=== PATIENT | female | born 1960 | race Caucasian/White ===

== ENCOUNTER → 2016-12-13 | Outpatient (REF) | payer OTHER | LOC: M LABDRWAD 12:48 | PROVIDERS: ATTEND Nurse Practitioner Family | DX: R73.01 Impaired fasting glucose (principal) ==

== ENCOUNTER → 2017-04-07 | Outpatient (REF) | payer OTHER ==
[2017-04-07 12:48] LABS: BASO % 0.5 % (0.0-1.0); EOS # 0.3 K/mm3 (0.0-0.50); EOS % 4.2 % (0.0-3.0); LARGE UNSTAINED CELL # 0.1 K/mm3 (0.0-0.4); LARGE UNSTAINED CELL % 1.5 % (0.0-4.0); LYMPH # 2.5 K/mm3 (1.5-4.5); LYMPH % 33.8 % (24.0-44.0); MEAN CORPUSCULAR HEMOGLOBIN 30.3 pg (27.0-33.0); MEAN CORPUSCULAR HGB CONC 33.1 g/dl (32.0-36.5); MEAN CORPUSCULAR VOLUME 91.5 fl (80.0-96.0); MONO # 0.4 K/mm3 (0.0-0.8); MONO % 5.4 % (0.0-5.0); NEUTROPHILS # 3.8 K/mm3 (1.8-7.7); NEUTROPHILS % 54.5 % (36.0-66.0); PLATELET COUNT, AUTOMATED 301 k/mm3 (150-450); RED CELL DISTRIBUTION WIDTH 12.6 % (11.5-14.5)
[2017-04-07 13:13] LABS: ALBUMIN 3.8 GM/DL (3.2-5.2); ALBUMIN/GLOBULIN RATIO 1.19 (1.00-1.93); ALKALINE PHOSPHATASE 98 U/L (45-117); ALT/SGPT 30 U/L (12-78); ANION GAP 6 MEQ/L (8-16); AST/SGOT 17 U/L (15-37); BLOOD UREA NITROGEN 23 MG/DL (7-18); CALCIUM LEVEL 9.8 MG/DL (8.5-10.1); CARBON DIOXIDE LEVEL 32 MEQ/L (21-32); CHLORIDE LEVEL 104 MEQ/L (98-107); CHOLESTEROL LEVEL 179 MG/DL (<200); CREATININE FOR GFR 0.93 MG/DL (0.55-1.02); GLOMERULAR FILTRATION RATE > 60.0 (>51); GLUCOSE, FASTING 102 MG/DL (70-105); POTASSIUM SERUM 4.2 MEQ/L (3.5-5.1); SODIUM LEVEL 142 MEQ/L (136-145); TRIGLYCERIDES LEVEL 129 MG/DL (<150)
== END ==
LOC: M LABDRWAD 12:12
PROVIDERS: ATTEND Nurse Practitioner Family
DX: I10 Essential (primary) hypertension (principal); E78.4 Other hyperlipidemia; R73.01 Impaired fasting glucose; K21.9 Gastro-esophageal reflux disease without esophagitis

== ENCOUNTER → 2017-10-17 | Outpatient (REF) | payer OTHER ==
[2017-10-17 12:41] LABS: BASO % 0.4 % (0.0-1.0); EOS # 0.3 10^3/uL (0.0-0.50); EOS % 3.8 % (0.0-3.0); IMMATURE GRANULOCYTE % 0.1 % (0-0); LYMPH # 2.1 10^3/uL (1.5-4.5); LYMPH % 29.2 % (24.0-44.0); MEAN CORPUSCULAR HEMOGLOBIN 29.4 pg (27.0-33.0); MEAN CORPUSCULAR VOLUME 89.2 fl (80.0-96.0); MONO # 0.7 10^3/uL (0.0-0.8); MONO % 9.4 % (0.0-5.0); NEUTROPHILS % 57.1 % (36.0-66.0); PLATELET COUNT, AUTOMATED 313 10^3/uL (150-450); RED CELL DISTRIBUTION WIDTH 12.6 % (11.5-14.5)
[2017-10-17 12:57] LABS: ALBUMIN 3.7 GM/DL (3.2-5.2); ALBUMIN/GLOBULIN RATIO 1.12 (1.00-1.93); ALKALINE PHOSPHATASE 89 U/L (45-117); ALT/SGPT 29 U/L (12-78); ANION GAP 8 MEQ/L (8-16); AST/SGOT 17 U/L (7-37); BILIRUBIN,TOTAL 1.4 MG/DL (0.2-1.0); BLOOD UREA NITROGEN 15 MG/DL (7-18); CALCIUM LEVEL 8.8 MG/DL (8.5-10.1); CARBON DIOXIDE LEVEL 28 MEQ/L (21-32); CHLORIDE LEVEL 108 MEQ/L (98-107); CHOLESTEROL LEVEL 172 MG/DL (<200); CREATININE FOR GFR 0.82 MG/DL (0.55-1.02); GLOMERULAR FILTRATION RATE > 60.0 (>51); GLUCOSE, FASTING 114 MG/DL (70-105); POTASSIUM SERUM 3.7 MEQ/L (3.5-5.1); SODIUM LEVEL 144 MEQ/L (136-145); TRIGLYCERIDES LEVEL 114 MG/DL (<150)
== END ==
LOC: M LAB REF 08:50
PROVIDERS: ATTEND Nurse Practitioner Family
DX: E55.9 Vitamin D deficiency, unspecified (principal); K21.9 Gastro-esophageal reflux disease without esophagitis; R73.01 Impaired fasting glucose; E78.4 Other hyperlipidemia; I10 Essential (primary) hypertension

== ENCOUNTER 2018-04-09 06:31 | Day surgery (SDC) | payer BC, OTHER ==
[2018-04-09] MEDS: NS 1,000 ML IV (07:03)
[2018-04-09] MEDS ORDERED: PROPOFOL 500 MG/50 ML VIAL As Ordered (07:39)
[2018-04-09] MEDS ORDERED: fentaNYL 100 MCG/2 ML INJECTION (J3010) As Ordered (07:39)
[2018-04-09] MEDS ORDERED: LIDOCAINE 2% INJ 100 MG/5 ML SDV (FOR ANES.) As Ordered (07:39)
== END 2018-04-09 08:26 | disposition home or self-care (01) ==
LOC: M OPP 06:31
DX: Z12.11 Encounter for screening for malignant neoplasm of colon (principal); K64.0 First degree hemorrhoids; K57.30 Diverticulosis of large intestine without perforation or abscess without bleeding; I10 Essential (primary) hypertension; E78.00 Pure hypercholesterolemia, unspecified; K21.9 Gastro-esophageal reflux disease without esophagitis; K44.9 Diaphragmatic hernia without obstruction or gangrene; R12 Heartburn; Z79.899 Other long term (current) drug therapy; Z87.891 Personal history of nicotine dependence; Z87.42 Personal history of other diseases of the female genital tract; Z87.19 Personal history of other diseases of the digestive system
CPT/HCPCS: 45378

== ENCOUNTER → 2018-04-25 | Outpatient (CLI) | payer BC, OTHER ==
[~2018-04-25] MED LIST: E-Z-GAS II EFFERVESCENT PACKET (SODIUM BICARB./CITRIC ACID/SIMETHICONE) As Ordered; E-Z-HD 98% w/w 340GM SUSP BTL As Ordered; E-Z-PAQUE 96% w/w SUSP 176GM BTL As Ordered
== END ==
LOC: M RAD 07:57
DX: R12 Heartburn (principal)
CPT/HCPCS: 74241

== ENCOUNTER → 2018-08-02 | Outpatient (REF) | payer OTHER ==
[2018-08-02 12:42] LABS: BASO # 0.1 10^3/uL (0.0-0.2); BASO % 0.6 % (0.0-1.0); EOS # 0.3 10^3/uL (0.0-0.50); EOS % 3.3 % (0.0-3.0); HEMATOCRIT 44.7 % (36.0-47.0); HEMOGLOBIN 14.6 g/dl (12.0-15.5); IMMATURE GRANULOCYTE % 0.3 % (0-3.0); LYMPH # 2.6 10^3/uL (1.5-4.5); LYMPH % 29.6 % (24.0-44.0); MEAN CORPUSCULAR HEMOGLOBIN 29.5 pg (27.0-33.0); MEAN CORPUSCULAR HGB CONC 32.7 g/dl (32.0-36.5); MEAN CORPUSCULAR VOLUME 90.3 fl (80.0-96.0); MONO # 0.7 10^3/uL (0.0-0.8); MONO % 7.9 % (0.0-5.0); NEUTROPHILS # 5.1 10^3/uL (1.8-7.7); NEUTROPHILS % 58.3 % (36.0-66.0); PLATELET COUNT, AUTOMATED 323 10^3/uL (150-450); RED BLOOD COUNT 4.95 10^6/uL (4.00-5.40); RED CELL DISTRIBUTION WIDTH 12.7 % (11.5-14.5); WHITE BLOOD COUNT 8.8 10^3/uL (4.0-10.0)
[2018-08-02 13:11] LABS: TOTAL 25(OH) VITAMIN D 49.8 NG/ML (30.0-100.0)
[2018-08-02 13:21] LABS: ESTIMATED AVERAGE GLUCOSE 151 MG/DL (60-110); HEMOGLOBIN A1c 6.9 %
[2018-08-02 14:15] LABS: ALBUMIN 3.8 GM/DL (3.2-5.2); ALBUMIN/GLOBULIN RATIO 1.19 (1.00-1.93); ALKALINE PHOSPHATASE 100 U/L (45-117); ALT/SGPT 34 U/L (12-78); ANION GAP 11 MEQ/L (8-16); AST/SGOT 19 U/L (7-37); BILIRUBIN,TOTAL 1.1 MG/DL (0.2-1.0); BLOOD UREA NITROGEN 21 MG/DL (7-18); CALCIUM LEVEL 9.2 MG/DL (8.5-10.1); CARBON DIOXIDE LEVEL 29 MEQ/L (21-32); CHLORIDE LEVEL 103 MEQ/L (98-107); CHOLESTEROL LEVEL 185 MG/DL (<200); CHOLESTEROL RISK RATIO 3.425 (<5); CREATININE FOR GFR 0.91 MG/DL (0.55-1.30); GLOMERULAR FILTRATION RATE > 60.0 (>51); GLUCOSE, FASTING 130 MG/DL (70-100); HDL CHOLESTEROL 54 MG/DL (>40); LDL CHOLESTEROL 103 MG/DL (<100); NON-HDL-C 131 MG/DL; SODIUM LEVEL 143 MEQ/L (136-145); TRIGLYCERIDES LEVEL 138 MG/DL (<150)
== END ==
LOC: M LABDRWAD 12:07
DX: I10 Essential (primary) hypertension (principal); E55.9 Vitamin D deficiency, unspecified

== ENCOUNTER → 2019-02-04 | Outpatient (REF) | payer OTHER ==
[~2019-02-04] MED LIST changes: +ATOR1TAB21 PO; -E-Z-GAS II EFFERVESCENT PACKET (SODIUM BICARB./CITRIC ACID/SIMETHICONE) As Ordered; -E-Z-HD 98% w/w 340GM SUSP BTL As Ordered; -E-Z-PAQUE 96% w/w SUSP 176GM BTL As Ordered; +LOSARTAN/HCT PO; +OMEP20CA3 PO
[2019-02-04 13:18] LABS: BASO % 0.5 % (0.0-1.0); EOS # 0.3 10^3/uL (0.0-0.50); HEMATOCRIT 45.5 % (36.0-47.0); HEMOGLOBIN 14.7 g/dl (12.0-15.5); LYMPH # 2.3 10^3/uL (1.5-4.5); MEAN CORPUSCULAR HGB CONC 32.3 g/dl (32.0-36.5); MEAN CORPUSCULAR VOLUME 89.7 fl (80.0-96.0); MONO # 0.6 10^3/uL (0.0-0.8); MONO % 7.7 % (0.0-5.0); NEUTROPHILS % 60.6 % (36.0-66.0); PLATELET COUNT, AUTOMATED 292 10^3/uL (150-450); RED BLOOD COUNT 5.07 10^6/uL (4.00-5.40); WHITE BLOOD COUNT 8.3 10^3/uL (4.0-10.0)
[2019-02-04 13:36] LABS: ALT/SGPT 41 U/L (12-78); BILIRUBIN,TOTAL 1.3 MG/DL (0.2-1.0); BLOOD UREA NITROGEN 22 MG/DL (7-18); CALCIUM LEVEL 9.4 MG/DL (8.5-10.1); CARBON DIOXIDE LEVEL 30 MEQ/L (21-32); CHLORIDE LEVEL 104 MEQ/L (98-107); CHOLESTEROL LEVEL 187 MG/DL (<200); CHOLESTEROL RISK RATIO 3.169 (<5); GLOMERULAR FILTRATION RATE > 60.0 (>51); GLUCOSE, FASTING 137 MG/DL (70-100); HDL CHOLESTEROL 59 MG/DL (>40); LDL CHOLESTEROL 101 MG/DL (<100); NON-HDL-C 128 MG/DL; POTASSIUM SERUM 3.6 MEQ/L (3.5-5.1); SODIUM LEVEL 140 MEQ/L (136-145); TOTAL 25(OH) VITAMIN D 53.6 NG/ML (30.0-100.0); TOTAL PROTEIN 6.9 GM/DL (6.4-8.2); TRIGLYCERIDES LEVEL 133 MG/DL (<150)
== END ==
LOC: M LABDRWAD 12:06
PROVIDERS: ATTEND Nurse Practitioner Family
DX: E11.9 Type 2 diabetes mellitus without complications (principal); I10 Essential (primary) hypertension; E55.9 Vitamin D deficiency, unspecified

== ENCOUNTER → 2020-06-26 | Outpatient (REF) | payer OTHER ==
[~2020-06-26] MED LIST changes: +OMEP1CAP73 PO; -OMEP20CA3 PO
[2020-06-26 14:50] LABS: BASO # 0.1 10^3/uL (0.0-0.2); BASO % 0.8 % (0.0-1.0); EOS # 0.3 10^3/uL (0.0-0.5); EOS % 3.5 % (0.0-3.0); HEMOGLOBIN 15.3 g/dl (12.0-15.5); LYMPH # 2.5 10^3/uL (1.5-5.0); LYMPH % 32.1 % (24.0-44.0); MEAN CORPUSCULAR HEMOGLOBIN 29.9 pg (27.0-33.0); MEAN CORPUSCULAR HGB CONC 33.3 g/dl (32.0-36.5); MONO # 0.7 10^3/uL (0.0-0.8); MONO % 8.9 % (0.0-5.0); NEUTROPHILS # 4.2 10^3/uL (1.5-8.5); NEUTROPHILS % 54.4 % (36.0-66.0); PLATELET COUNT, AUTOMATED 273 10^3/uL (150-450); RED BLOOD COUNT 5.11 10^6/uL (4.00-5.40); WHITE BLOOD COUNT 7.6 10^3/uL (4.0-10.0)
[2020-06-26 15:14] LABS: ALBUMIN 3.8 GM/DL (3.2-5.2); ALT/SGPT 66 U/L (12-78); BILIRUBIN,TOTAL 1.3 MG/DL (0.2-1.0); BLOOD UREA NITROGEN 11 MG/DL (7-18); CALCIUM LEVEL 9.2 MG/DL (8.5-10.1); CARBON DIOXIDE LEVEL 31 MEQ/L (21-32); CHLORIDE LEVEL 98 MEQ/L (98-107); CREATININE FOR GFR 0.94 MG/DL (0.55-1.30); GLOMERULAR FILTRATION RATE > 60.0 (>51); GLUCOSE, FASTING 270 MG/DL (70-100); POTASSIUM SERUM 3.2 MEQ/L (3.5-5.1); SODIUM LEVEL 137 MEQ/L (136-145)
== END ==
LOC: M LABDRWAD 12:52
PROVIDERS: ATTEND Family Medicine
DX: Z01.818 Encounter for other preprocedural examination (principal)

== ENCOUNTER 2020-11-11 17:01 | Inpatient (IN) | payer BC, OTHER ==
[~2020-11-11] VITALS: Ht 157.5 cm; Wt 86.3 kg
[2020-11-11] MEDS: AZITHROMYCIN INJ 500 MG, VIAL MATE ADAPTER 1 EACH in D5W 250 ML IV SCH (01:15)
--- OUTSIDE RECORDS SUMMARY | 2020-11-11 17:07 | CCD | Continuity of Care Document ---
Author Author Rashmi OVALLE Organization Unknown Address [address] [place] [id number] Phone [phone] Care Team Providers Care Criminal Legal Assistant Name Role Phone Shemar [employer] AUTM [phone] Problems Active Problems Provider Date Type 2 diabetes mellitus [place]: 03/2021 Social History Type Date Description Comments Sex Unknown Tobacco Use Start: Unknown Never Smoked Cigarettes ETOH Use Occasionally consumes alcohol Tobacco Use Start: Unknown The patient has never vaped Smoking Status Reviewed: 11/04/20 The patient has never vaped Allergies, Adverse Reactions, Alerts Description No Known Drug Allergies Medications Active Medications SIG Qnty Indications Ordering Provide r Date Omeprazole bid Unknown Lisinopril Unknown Atorvastatin Calcium Unknown Vitamin D Unknown Metformin HCL Powder Unknown Tylenol 325mg Capsules x2 at 12:30p Unknown Immunizations Description No Information Available Vital Signs Date Vital Result Comment 11/04/2020 2:29pm BP Systolic 117 mmHg BP Diastolic 88 mmHg Heart Rate 94 /min Regular Respiratory Rate 20 /min O2 % BldC Oximetry 96 % Body Temperature 97.5 F Weight 200.00 lb Height 62 inches 5'2" BMI (Body Mass Index) 36.6 kg/m2 Pain Level 0 12/17/2017 11:50am BP Systolic 140 mmHg BP Diastolic 87 mmHg Heart Rate 75 /min Respiratory Rate 18 /min O2 % BldC Oximetry 98 % Body Temperature 98.2 F Weight 210.00 lb Height 62 inches 5'2" BMI (Body Mass Index) 38.4 kg/m2 Pain Level 2 Results Description No Information Available Procedures Description No Information Available Medical Devices Description No Information Available Encounters Type Date Location Provider Dx Diagnosis Office Visit 11/04/2020 2:00p [facility] Preet Ovalle, P .AElisha R05 Cough R42 Dizziness and giddiness U07.1 Covid-19 Assessments Date Code Description Provider 11/04/2020 R05 Cough Preet andrews P.A. 11/04/2020 R42 Dizziness and giddiness Preet Ovalle P.AElisha 11/04/2020 U07.1 Covid-19 Preet andrews, P.A. Plan of Treatment No Information Available Functional Status Description No Information Available Mental Status Description No Information Available Referrals Description No Information Available
--- OUTSIDE RECORDS SUMMARY | 2020-11-11 17:07 | CCD ---
Author Author [facility] Organization [facility] Address Unknown Phone Unavailable Care Team Providers Care Pharmacist Technician Name Role Phone DRAZEK, I RAMIRO PA Unavailable Unavailable DRAZEK, I RAMIRO PA Unavailable Unavailable DRAZEK, I RAMIRO PA Unavailable Unavailable DRAZEK, I RAMIRO PA Unavailable Unavailable DRAZEK, I RAMIRO PA Unavailable Unavailable DRAZEK, I RAMIRO PA Unavailable Unavailable DRAZEK, I RAMIRO PA Unavailable Unavailable DRAZEK, I RAMIRO PA Unavailable Unavailable DRAZEK, I RAMIRO PA Unavailable Unavailable DRAZEK, I RAMIRO PA Unavailable Unavailable DRAZEK, I RAMIRO PA Unavailable Unavailable DRAZEK, I RAMIRO PA Unavailable Unavailable DRAZEK, I RAMIRO PA Unavailable Unavailable DRAZEK, I RAMIRO PA Unavailable Unavailable DRAZEK, I RAMIRO PA Unavailable Unavailable DRAZEK, I RAMIRO PA Unavailable Unavailable DRAZEK, I RAMIRO PA Unavailable Unavailable DRAZEK, I RAMIRO PA Unavailable Unavailable DRAZEK, I RAMIRO PA Unavailable Unavailable DRAZEK, I RAMIRO PA Unavailable Unavailable DRAZEK, I RAMIRO PA Unavailable Unavailable DRAZEK, I RAMIRO PA Unavailable Unavailable DRAZEK, I RAMIRO PA Unavailable Unavailable DRAZEK, I RAMIRO PA Unavailable Unavailable DRAZEK, I RAMIRO PA Unavailable Unavailable DRAZEK, I RAMIRO PA Unavailable Unavailable DRAZEK, I RAMIRO PA Unavailable Unavailable DRAZEK, I RAMIRO PA Unavailable Unavailable DRAZEK, I RAMIRO PA Unavailable Unavailable DRAZCLEMENTINA, I RAMIRO PA Unavailable Unavailable KALLIE, Saeed COOK MD Unavailable Unavailable KALLIE, Saeed COOK MD Unavailable Unavailable KALLIE, Saeed COOK MD Unavailable Unavailable KALLIE, Saeed COOK MD Unavailable Unavailable KALLIE, Saeed COOK MD Unavailable Unavailable KALLIE, Saeed COOK MD Unavailable Unavailable KALLIE, Saeed COOK MD Unavailable Unavailable KALLIE, Saeed COOK MD Unavailable Unavailable KALLIE, Saeed COOK MD Unavailable Unavailable KALLIE, Saeed COOK MD Unavailable Unavailable Breana MCFARLAND Unavailable Unavailable IVANA, Louis MARTINEZ MD Unavailable Unavailable IVANA, Louis MARTINEZ MD Unavailable Unavailable IVANA, Louis MARTINEZ MD Unavailable Unavailable IVANA, Louis MARTINEZ MD Unavailable Unavailable IVANA, Louis MARTINEZ MD Unavailable Unavailable IVANA, Louis MARTINEZ MD Unavailable Unavailable IVANA, Louis MARTINEZ MD Unavailable Unavailable IVANA, Louis MARTINEZ MD Unavailable Unavailable IVANA, Louis MARTINEZ MD Unavailable Unavailable IVANA, Louis MARTINEZ MD Unavailable Unavailable IVANA, Louis MARTINEZ MD Unavailable Unavailable IVANA, Louis MARTINEZ MD Unavailable Unavailable IVANA, Louis MARTINEZ MD Unavailable Unavailable IVANA, Louis MARTINEZ MD Unavailable Unavailable IVANA, Louis MARTINEZ MD Unavailable Unavailable IVANA, Louis MARTINEZ MD Unavailable Unavailable IVANA, Louis MARTINEZ MD Unavailable Unavailable IVANA, Louis MARTINEZ MD Unavailable Unavailable IVANA, Louis MARTINEZ MD Unavailable Unavailable IVANA, Louis MARTINEZ MD Unavailable Unavailable IVANA, Louis MARTINEZ MD Unavailable Unavailable IVANA, Louis MARTINEZ MD Unavailable Unavailable IVANA, Louis MARTINEZ MD Unavailable Unavailable IVANA, Louis MARTINEZ MD Unavailable Unavailable IVANA, Louis MARTINEZ MD Unavailable Unavailable IVANA, Louis MARTINEZ MD Unavailable Unavailable IVANA, Louis MARTINEZ MD Unavailable Unavailable IVANA, Louis MARTINEZ MD Unavailable Unavailable IVANA, Louis MARTINEZ MD Unavailable Unavailable IVANA, Louis MARTINEZ MD Unavailable Unavailable IVANA, Louis MARTINEZ MD Unavailable Unavailable IVANA, B JUAN SIMPSON Unavailable Unavailable IVANA, Louis MARTINEZ MD Unavailable Unavailable IVNAA, Louis MARTINEZ MD Unavailable Unavailable IVANA, Louis MARTINEZ MD Unavailable Unavailable IVANA, B JUAN SIMPSON Unavailable Unavailable IVANA, Louis MARTINEZ MD Unavailable Unavailable IVANA, Louis MARTINEZ MD Unavailable Unavailable IVANA, B JUAN SIMPSON Unavailable Unavailable IVANA, Louis MARTINEZ MD Unavailable Unavailable IVANA, Louis MARTINEZ MD Unavailable Unavailable IVANA, B JUAN SIMPSON Unavailable Unavailable IVANA, B JUAN SIMPSON Unavailable Unavailable IVANA, B JUAN SIMPSON Unavailable Unavailable IVANA, Louis MARTINEZ MD Unavailable Unavailable IVANA, Louis MARTINEZ MD Unavailable Unavailable IVANA, Louis MARTINEZ MD Unavailable Unavailable IVANA, Louis MARTINEZ MD Unavailable Unavailable IVANA, Louis MARTINEZ MD Unavailable Unavailable IVANA, B JUAN SIMPSON Unavailable Unavailable IVANA, Louis MARTINEZ MD Unavailable Unavailable IVANA, Louis MARTINEZ MD Unavailable Unavailable IVANA, Louis MARTINEZ MD Unavailable Unavailable IVANA, B JUAN SIMPSON Unavailable Unavailable IVANA, B JUAN SIMPSON Unavailable Unavailable IVANA, B JUAN SIMPSON Unavailable Unavailable IVANA, B JUAN SIMPSON Unavailable Unavailable IVANA, Louis MARTINEZ MD Unavailable Unavailable IVANA, Louis MARTINEZ MD Unavailable Unavailable IVANA, B JUAN SIMPSON Unavailable Unavailable IVANA, Louis MARTINEZ MD Unavailable Unavailable IVANA, Louis MARTINEZ MD Unavailable Unavailable IVANA, Louis MARTINEZ MD Unavailable Unavailable IVANA, Louis MARTINEZ MD Unavailable Unavailable IVANA, Louis MARTINEZ MD Unavailable Unavailable IVANA, Louis MARTINEZ MD Unavailable Unavailable IVANA, Louis MARTINEZ MD Unavailable Unavailable IVANA, B JUAN SIMPSON Unavailable Unavailable IVANA, B JUAN SIMPSON Unavailable Unavailable IVANA, Louis MARTINEZ MD Unavailable Unavailable IVANA, B JUAN SIMPSON Unavailable Unavailable IVANA, Louis MARTINEZ MD Unavailable Unavailable IVANA, Louis MARTNIEZ MD Unavailable Unavailable IVNAA, Louis MARTINEZ MD Unavailable Unavailable IVANA, B JUAN SIMPSON Unavailable Unavailable IVANA, Louis MARTINEZ MD Unavailable Unavailable IVANA, Louis MARTINEZ MD Unavailable Unavailable IVANA, Louis MARTINEZ MD Unavailable Unavailable IVANA, Louis MARTINEZ MD Unavailable Unavailable IVANA, Louis MARTINEZ MD Unavailable Unavailable IVANA, B JUAN SIMPSON Unavailable Unavailable IVANA, B JUAN SIMPSON Unavailable Unavailable IVANA, B JUAN SIMPSON Unavailable Unavailable VASQUEZ, GIDEON PA Unavailable Unavailable VASQUEZ, GIDEON PA Unavailable Unavailable VASQUEZ, GIDEON PA Unavailable Unavailable VASQUEZ, GIDEON PA Unavailable Unavailable VASQUEZ, GIDEON PA Unavailable Unavailable VASQUEZ, GIDEON PA Unavailable Unavailable VASQUEZ, GIDEON PA Unavailable Unavailable VASQUEZ, GIDEON PA Unavailable Unavailable VASQUEZ, GIDEON PA Unavailable Unavailable VASQUEZ, GIDEON PA Unavailable Unavailable VASQUEZ, GIDEON PA Unavailable Unavailable VASQUEZ, GIDEON PA Unavailable Unavailable VASQUEZ, GIDEON PA Unavailable Unavailable VASQUEZ, GIDEON PA Unavailable Unavailable VASQUEZ, GIDEON PA Unavailable Unavailable VASQUEZ, GIDEON PA Unavailable Unavailable VASQUEZ, GIDEON PA Unavailable Unavailable VASQUEZ, GIDEON PA Unavailable Unavailable VASQUEZ, GIDEON PA Unavailable Unavailable VASQUEZ, GIDEON PA Unavailable Unavailable VASQUEZ, GIDEON PA Unavailable Unavailable VASQUEZ, GIDEON PA Unavailable Unavailable VASQUEZ, GIDEON PA Unavailable Unavailable VASQUEZ, GIDEON PA Unavailable Unavailable VASQUEZ, GIDEON PA Unavailable Unavailable VASQUEZ, GIDEON PA Unavailable Unavailable VASQUEZ, GIDEON PA Unavailable Unavailable VASQUEZ, GIDEON PA Unavailable Unavailable VASQUEZ, GIDEON PA Unavailable Unavailable VASQUEZ, GIDEON PA Unavailable Unavailable VASQUEZ, GIDEON PA Unavailable Unavailable VASQUEZ, GIDEON PA Unavailable Unavailable VASQUEZ, GIDEON PA Unavailable Unavailable VASQUEZ, GIDEON PA Unavailable Unavailable VASQUEZ, GIDEON PA Unavailable Unavailable VASQUEZ, GIDEON PA Unavailable Unavailable VASQUEZ, GIDEON PA Unavailable Unavailable VASQUEZ, GIDEON PA Unavailable Unavailable ALIASES , DEFAULT / GENERIC / UNKNOWN PROVIDER * Unavailable Unavailable ALIASES , DEFAULT / GENERIC / UNKNOWN PROVIDER * Unavailable Unavailable ALIASES , DEFAULT / GENERIC / UNKNOWN PROVIDER * Unavailable Unavailable ALIASES , DEFAULT / GENERIC / UNKNOWN PROVIDER * Unavailable Unavailable ALIASES , DEFAULT / GENERIC / UNKNOWN PROVIDER * Unavailable Unavailable ALIASES , DEFAULT / GENERIC / UNKNOWN PROVIDER * Unavailable Unavailable ALIASES , DEFAULT / GENERIC / UNKNOWN PROVIDER * Unavailable Unavailable ALIASES , DEFAULT / GENERIC / UNKNOWN PROVIDER * Unavailable Unavailable ALIASES , DEFAULT / GENERIC / UNKNOWN PROVIDER * Unavailable Unavailable ALIASES , DEFAULT / GENERIC / UNKNOWN PROVIDER * Unavailable Unavailable ALIASES , DEFAULT / GENERIC / UNKNOWN PROVIDER * Unavailable Unavailable ALIASES , DEFAULT / GENERIC / UNKNOWN PROVIDER * Unavailable Unavailable ALIASES , DEFAULT / GENERIC / UNKNOWN PROVIDER * Unavailable Unavailable ALIASES , DEFAULT / GENERIC / UNKNOWN PROVIDER * Unavailable Unavailable ALIASES , DEFAULT / GENERIC / UNKNOWN PROVIDER * Unavailable Unavailable ALIASES , DEFAULT / GENERIC / UNKNOWN PROVIDER * Unavailable Unavailable ALIASES , DEFAULT / GENERIC / UNKNOWN PROVIDER * Unavailable Unavailable ALIASES , DEFAULT / GENERIC / UNKNOWN PROVIDER * Unavailable Unavailable ALIASES , DEFAULT / GENERIC / UNKNOWN PROVIDER * Unavailable Unavailable ALIASES , DEFAULT / GENERIC / UNKNOWN PROVIDER * Unavailable Unavailable ALIASES , DEFAULT / GENERIC / UNKNOWN PROVIDER * Unavailable Unavailable ALIASES , DEFAULT / GENERIC / UNKNOWN PROVIDER * Unavailable Unavailable ALIASES , DEFAULT / GENERIC / UNKNOWN PROVIDER * Unavailable Unavailable ALIASES , DEFAULT / GENERIC / UNKNOWN PROVIDER * Unavailable Unavailable SOTELO, F LIZZETH Unavailable Unavailable SEAY, RAMIRO Unavailable Unavailable SEAY, RAMIRO Unavailable Unavailable SEAY, RAMIRO Unavailable Unavailable Re-disclosure Warning The records that you are about to access may contain information from federally-assisted alcohol or drug abuse programs. If such information is present, then the following federally mandated warning applies: This information has been disclosed to you from records protected by federal confidentiality rules (42 CFR part 2). The federal rules prohibit you from making any further disclosure of this information unless further disclosure is expressly permitted by the written consent of the person to whom it pertains or as otherwise permitted by 42 CFR part 2. A general authorization for the release of medical or other information is NOT sufficient for this purpose. The Federal rules restrict any use of the information to criminally investigate or prosecute any alcohol or drug abuse patient.The records that you are about to access may contain highly sensitive health information, the redisclosure of which is protected by Article 27-F of the [facility] Public Health law. If you continue you may have access to information: Regarding HIV / AIDS; Provided by facilities licensed or operated by the [facility] Office of Mental Health; or Provided by the [facility] Office for People With Developmental Disabilities. If such information is present, then the following [facility] mandated warning applies: This information has been disclosed to you from confidential records which are protected by state law. State law prohibits you from making any further disclosure of this information without the specific written consent of the person to whom it pertains, or as otherwise permitted by law. Any unauthorized further disclosure in violation of state law may result in a fine or longterm sentence or both. A general authorization for the release of medical or other information is NOT sufficient authorization for further disc losure. Advance Directives Directive Description [employer] Transitions Manager Status Observation Descr iption Data Source(s) No Directive Type specified PT STATES NO ADVANCE DIRECTIVES completed No Directive Type specified [facility] Allergies and Adverse Reactions Type Description Substance Reaction Status Data Source(s ) Drug Class NO KNOWN ALLERGIES NO KNOWN ALLERGIES [facility] Family History Family Member Name Family Member Gender Family Member Status Date o f Status Description Data Source(s) Unknown Female Problem [facility] ([facility] Unknown Unknown [facility] Encounters Encounter Providers Location Date Indications Data Source(s ) Outpatient Attender: GIDEON hawkins 11/04/2020 01:00:00 PM EST [facility] ([facility]) Outpatient Attender: COLLIN MCFARLAND 07/30/2020 12:00:00 [facility] Outpatient Referrer: COLLIN MCFARLAND 07/20/2020 12:00:00 [facility] Outpatient Attender: RAMIRO Carrasco nder: JOYCE ARREGUIN MDAdmitter: RAMIRO SEAYConsultant: JOYCE ARREGUIN MDConsultant: RAMIRO SEAY OUTPATIENT-[facility] 07/05/2020 08:05:00 AM EDT - 07/05/2020 08:54:00 AM EDT [facility] Patient discharged. Outpatient Attender: JUAN HEATH MD 05/04/2020 12:00:00 AM EDT [facility] Outpatient Attender: COLLIN MCFARLANDReferrer: COLLIN MAYS [id number] 04/27/2020 12:00:00 AM EDT [facility] Outpatient Referrer: COLLIN MCFARLAND 04/21/2020 12:0 0:00 AM EDT Impingement syndrome of left [facility] Impingement syndrome of left shoulder Outpatient Attender: COLLIN MCFARLAND [id number] 04/20/2020 12:0 0:00 AM EDT Impingement syndrome of left [facility] Impingement syndrome of left shoulder Outpatient Attender: DEFAULT / GENE ALY / UNKNOWN PROVIDER ALIASES Attender: LIZZETH SOTELOReferrer: JUAN HEATH MD [id number] 12:00:00 AM EDT - 04/19/2020 12:00:[address] [facility] Outpatient Attender: JUAN HEATH MD [id number] 03/02/20 12:00:00 AM EDT - 03/02/2020 03:47:42 PM EDT Trigger finger, left middle finger [facility] Trigger finger, left middle finger Outpatient Attender: COLLIN MCFARLANDReferrer: JUAN HEATH MD [id number] 03/02/2020 12:00:00 AM EDT Pain in left [facility] Pain in left shoulder Outpatient Referrer: COLLIN MCFARLAND 03/02/2020 12:0 0:00 AM EDT Pain in left [facility] Pain in left shoulder OFFICE OUTPATIENT NEW 30 MINUTES Attender: RAMIRO POLANCO Physic al Therapy 01/02/2020 10:30:00 AM EST [facility]ENT ([facility]) Functional Status Immunizations Vaccine Date Status Description Data Source(s) INFLUENZA VIRUS VACCINE QUADRIVAL [id number](6 MOS AND UP)/PF 08/04/2020 12:00:00 AM EDT [facility] Medications Medication Brand Name Start Date Product Form Dose Route Admi nistrative Instructions Pharmacy Instructions Status Indications Reaction Description Data Source(s) 90 mcg/actuation 11/10/2020 12:00:00 AM EST HFA aerosol inha ler 8 INHAKE 2 PUFFS BY MOUTH EVERY 4 HOURS NEEDED INHAKE 2 PUFFS BY MOUTH EVERY 4 HOURS NEEDED SOLD: 11/10/2020 [facility] atorvastatin 20 MG Oral Tablet ATORVASTATIN CALCIUM 11/03/2020 1 2:00:00 AM EST tablet 90 TAKE ONE TABLET BY MOUTH EVERY D AY TAKE ONE TABLET BY MOUTH EVERY DAY SOLD: 11/03/2020 [facility] 20 mg 08/28/2020 12:00:00 AM EDT capsule,delayed release (DR/EC) 180 TAKE ONE CAPSULE BY MOUTH TWICE A DAY TAKE ONE CAPSULE BY MOUTH TWICE A DAY SOLD: 08/29/2020 [facility] Hydrochlorothiazide 12.5 MG / Losartan Potassium 50 MG Oral Tablet 50-12.5 mg LOSARTAN POTASSIUM/HYDROCHLOROTHIAZIDE 08/28/2020 12:00:00 AM EDT tablet 9 0 TAKE ONE TABLET BY MOUTH EVERY DAY TAKE ONE TABLET BY MOUTH EVERY DAY SOLD: 08/29/2020 [facility] 24 HR Metformin hydrochloride 750 MG Extended Release Oral T ablet METFORMIN HCL 08/04/2020 12:00:00 AM EDT tablet extended release 24 hr 30 TAKE ONE TABLET BY MOUTH EVERY DAY IN THE EVENING WITH FOOD TAKE ONE TABLET BY MOUTH EVERY DAY IN THE EVENING WITH FOOD SOLD: 09/30/2020 [facility] 24 HR Metformin hydrochloride 750 MG Extended Release Oral T ablet METFORMIN HCL 08/04/2020 12:00:00 AM EDT tablet extended release 24 hr 30 TAKE ONE TABLET BY MOUTH EVERY DAY IN THE EVENING WITH FOOD TAKE ONE TABLET BY MOUTH EVERY DAY IN THE EVENING WITH FOOD SOLD: 08/04/2020 [facility] 24 HR Metformin hydrochloride 750 MG Extended Release Oral T ablet METFORMIN HCL 08/04/2020 12:00:00 AM EDT tablet extended release 24 hr 30 TAKE ONE TABLET BY MOUTH EVERY DAY IN THE EVENING WITH FOOD TAKE ONE TABLET BY MOUTH EVERY DAY IN THE EVENING WITH FOOD SOLD: 10/30/2020 [facility] 24 HR Metformin hydrochloride 750 MG Extended Release Oral T ablet METFORMIN HCL 08/04/2020 12:00:00 AM EDT tablet extended release 24 hr 30 TAKE ONE TABLET BY MOUTH EVERY DAY IN THE EVENING WITH FOOD TAKE ONE TABLET BY MOUTH EVERY DAY IN THE EVENING WITH FOOD SOLD: 08/29/2020 [facility] BLOOD SUGAR DIAGNOSTIC 07/15/2020 12:00:00 AM EDT strip 100 TEST TWO TIMES A DAY TEST TWO TIMES A DAY SOLD: 07/15/2020 [facility] 500 mg 07/15/2020 12:00:00 AM EDT tablet extended release 24 hr 30 TAKE ONE TABLET BY MOUTH EVERY EVENING WITH FOOD TAKE ONE TABLET BY MOUTH EVERY EVENING WITH FOOD SOLD: 07/15/2020 [facility] LANCETS 07/15/2020 12:00:00 AM EDT misc 100 TEST TWO TIMES A DAY TEST TWO TIMES A DAY SOLD: 07/15/2020 [facility] BLOOD-GLUCOSE METER 07/15/2020 12:00:00 AM EDT misc 1 TEST TWO TIMES A DAY TEST TWO TIMES A DAY SOLD: 07/15/2020 [facility] atorvastatin 20 MG Oral Tablet ATORVASTATIN CALCIUM 04/20/2020 1 2:00:00 AM EDT tablet 90 TAKE ONE TABLET BY MOUTH EVERY D AY TAKE ONE TABLET BY MOUTH EVERY DAY SOLD: 04/21/2020 [facility] 12.5 mg 02/18/2020 12:00:00 AM EDT capsule 90 TAKE ONE CAPSULE BY MOUTH EVERY DAY TAKE ONE CAPSULE BY MOUTH EVERY DAY SOLD: 02/20/2020 [facility] 50 mg 02/18/2020 12:00:00 AM EDT tablet 90 TAKE ONE TABLET BY MOUTH EVERY DAY TAKE ONE TABLET BY MOUTH EVERY DAY SOLD: 02/20/2020 [facility] Losartan Potassium 50 MG Oral Tablet LOSARTAN POTASSIUM 12:00:00 AM EDT tablet 90 TAKE ONE TABLET BY MOUTH CAITLIN RY DAY TAKE ONE TABLET BY MOUTH EVERY DAY SOLD: 05/13/2020 [facility] Hydrochlorothiazide 12.5 MG Oral Capsule HYDROCHLOROTHIAZIDE 02/18/2020 12:00:00 AM EDT capsule 90 TAKE ONE CAPSULE BY MOUTH EV BEST DAY TAKE ONE CAPSULE BY MOUTH EVERY DAY SOLD: 05/13/2020 [facility] 20 mg 02/17/2020 12:00:00 AM EDT capsule,delayed release (DR/EC) 180 TAKE ONE CAPSULE BY MOUTH TWICE A DAY TAKE ONE CAPSULE BY MOUTH TWICE A DAY SOLD: 05/13/2020 [facility] 20 mg 02/17/2020 12:00:00 AM EDT capsule,delayed release (DR/EC) 180 TAKE ONE CAPSULE BY MOUTH TWICE A DAY TAKE ONE CAPSULE BY MOUTH TWICE A DAY SOLD: 02/20/2020 [facility] Omeprazole 20 MG Delayed Release Oral Ca psule Omeprazole 20 MG Oral Capsule Delayed Release (PriLOSEC) Omeprazole 20 MG Oral Capsule Delayed Re lease (PriLOSEC) 02/17/2020 12:00:00 AM EDT 20 mg Oral active Take 20 mg by mouth Two Times Daily [facility] 800 mg 01/15/2020 12:00:00 AM EDT tablet 20 TAKE ONE TABLET BY MOUTH THREE TIMES A DAY TAKE ONE TABLET BY MOUTH THREE TIMES A DAY SOLD: 01/15/2020 [facility] atorvastatin 20 MG Oral Tablet ATORVASTATIN CALCIUM 01/14/2020 1 2:00:00 AM EDT tablet 90 TAKE ONE TABLET BY MOUTH EVERY D AY TAKE ONE TABLET BY MOUTH EVERY DAY SOLD: 01/15/2020 [facility] atorvastatin 20 MG Oral Tablet Atorvastatin Calcium 20 MG Oral Tablet (LIPITOR) Atorvastatin Calcium 20 MG Oral Tablet (LIPITOR) 01/14/2020 12:00:00 AM EDT 20 mg Oral active Take 20 mg by mouth [facility] 20 mg 11/29/2019 12:00:00 AM EST capsule,delayed release (DR/EC) 180 TAKE ONE CAPSULE BY MOUTH TWICE A DAY TAKE ONE CAPSULE BY MOUTH TWICE A DAY SOLD: 11/30/2019 [facility] Hydrochlorothiazide 12.5 MG / Losartan P otassium 50 MG Oral Tablet Losartan Potassium-HCTZ 50-12.5 MG Oral Tablet (HYZAAR) Losartan Potassium-HCTZ 50-12.5 MG Oral Tablet (HYZAAR) 11/29/2019 12:00:00 AM EST 1 {tbl} Oral active Take 1 tablet by mouth daily [facility] 50-12.5 mg 08/15/2019 12:00:00 AM EDT tablet 90 TAKE ONE TABLET BY MOUTH EVERY DAY TAKE ONE TABLET BY MOUTH EVERY DAY SOLD: 11/30/2019 [facility] Insurance Providers Payer name Policy type / Coverage type Policy ID Covered libertarian ID Covered libertarian's relationship to high Policy High Plan Information [facility] [id number] [facility] [id number] EMPIRE PLAN [facility] U [id number] Spouse [id number] EMPIRE PLAN [id number] Spouse [id number] EMPIRE PLAN [facility] U [id number] Spouse [id number] BCBS EMPIRE REBA DIV [id number] [employer] [id number] SP [id number] [facility] [place] Health Maintenance Organization (HMO) [id number] Family Dependent [id number] [facility] [place] Commercial [id number] Self [id number] [facility] EMPIRE PLAN [id number] Spouse [id number] EMPIRE ([facility]) O [id number] P [id number] [employer] P [id number] S [id number] [facility] DIV [id number] Problems, Conditions, and Diagnoses Code Display Name Description Problem Type Effective Dates Data Source(s) 91352856 Type 2 diabetes mellitus Type 2 diabetes mellitus Prob beryl 11/04/2020 12:00:00 AM EST [facility] ([facility]) [id number] Pure hypercholesterolemia Pure hypercholesterolemia Pr oblem 01/02/2020 12:00:00 AM EST [facility] ([facility]) [id number] Essential hypertension Essential hypertension Problem 01/02/2020 12:00:00 AM EST [facility] ([facility]) M75.42 Impingement syndrome of left shoulder Im pingement syndrome of left shoulder Diagnosis 04/21/2020 11:06:30 AM EDT [facility] M25.512 Pain in left shoulder Pain in left shoulder Diagnosis 03/02/2020 02:08:16 PM EDT [facility] M65.332 Trigger finger, left middle finger Trigger finge r, left middle finger Diagnosis 03/02/2020 01:12:37 PM EDT [facility] Surgeries/Procedures Procedure Description Date Indications Data Source(s) SURGERY CASE REQUEST OUTSIDE FACILITY ONLY SURGERY CA SE REQUEST OUTSIDE FACILITY ONLY Routine 04/28/2020 8:06 AM EDT Impingement syndrome of left shoulder Labral tear of shoulder, left, subsequent encounter 12:06:49 PM EDT Labral tear of shoulder, left, subsequen t encounterImpingement syndrome of left shoulder [facility] Labral tear of shoulder, left, subsequen t encounter Impingement syndrome of left shoulder Results ID Date Data Source [id number] 11/04/2020 12:00:00 AM EST [facility] Name Value Range Interpretation Code Description Data Anat rce(s) Supporting Document(s) SARS-CoV2 Rapid Antigen Positive [facility] This lab was ordered by [facility] and reported by [facility]. ID Date Data Source [id number] 07/07/2020 09:45:04 AM EDT [facility] Note status: FINAL (SIGNED)Patient name: JENNI PALMERate of : 1960Visit ID: [id number] record number: [id number]: [id number]: Female[facility] 2Date of service: 07/06/2020 13:52Creation date: 07/06/2020 13:52Created by: Jacki ARREGUIN_Care_Physician: OUT OF TOWN, OUT OF TOWNProgress: Interim/pulmonary urine culture report shows few colonies of mixed growth consistent with skin semaj. Patient contacted and identified by name and date of advised of the negative urine culture. She did take the medication for vaginal yeast infection and is starting to feel slightly better. She will be following up with her doctor tomorrow and status of holiday for further evaluation of possible diabetes as this does run in her family. Physician signature: Shahana RUST signature date: 07/06/2020 13:56 Name Value Range Interpretation Code Description Data Anat rce(s) Supporting Document(s) ID Date Data Source [id number] 07/05/2020 08:39:00 AM EDT [facility] Name Value Range Interpretation Code Description Data Anat rce(s) Supporting Document(s) GLUCOSE BedSide 293 mg/dL 70-100 [facility] [id number] [facility] MeterDoctor No tified ID Date Data Source [id number] 07/07/2020 08:35:00 AM EDT [facility] CULTURE OBSERVATIONS Few colonies of mi xed growth consistent with skin semaj present Name Value Range Interpretation Code Description Data Anat rce(s) Supporting Document(s) ID Date Data Source [id number] 07/05/2020 11:50:00 AM EDT [facility] Name Value Range Interpretation Code Description Data Anat rce(s) Supporting Document(s) COLOR YELLOW [facility] APPEARANCE HAZY CLEAR ! [facility] SPECIFIC GRAVITY 1.020 1.000-1.030 [facility] pH 5.0 5.0-8.0 [facility] LEUKOCYTES NEGATIVE NEGATIVE [facility] NITRATE NEGATIVE NEGATIVE [facility] PROTEIN NEGATIVE mg/dL NEGATIVE [facility] GLUCOSE 1000 mg/dL NORMAL ! [facility] KETONE NEGATIVE mg/dL NEGATIVE [facility] UROBILINOGEN NORMAL mg/dL [facility] BILIRUBIN NEGAT[facility] mg/dL NEGATIVE [facility] HEMOGLOBIN NEGATIVE NEGATIVE [facility] ID Date Data Source [id number] 04/28/2020 08:07:43 AM EDT [facility] Name Value Range Interpretation Code Description Data Anat rce(s) Supporting Document(s) Progress Note [facility] XIDOQh9bSqKOTgFa85/AGNlmVTKwf7PlPSegKHr0NGpfCWLlU4GiOLB7gC9uLAE7ZOhZMyTsVlKhGlCj lbm [file] IDwxSDo0ICpzVwcpEAY0Wh1iLQDKSx4+HOwurCGipOxlKHCFQdHiHwc1LOiyDVVOAb4C ID Date Data Source [id number] 04/22/2020 07:57:32 AM EDT [facility] Name Value Range Interpretation Code Description Data Anat rce(s) Supporting Document(s) Progress Note [facility] QKUSHz6nKsBGJlIs08/WZBloWSCnk8DdMWzaKXg3XQvfKIPsG4YnCJB7mP8lTPZ4EDvHRgBaHqZoUwZ2 lbm [file] jal2GsR5FVrO2uHayUg5b3kFN/clinical project manager/AdBRBwcFaYci60Z4MOTueUwpeg6SLdo2lnS8FhcKOElMolpurn [file] ICAgICAgICAgICAgICAgICAgICAgICAgICAgICAgICAgICAgICAgICAgICAgICAgICAgICAgICAgICAg ICAgICAgDQogICAgICAgICAgICAgICAgICAgICAgIC AgICAgICAgICAgICAgICAgICAgICAgICAgICAgICAgICAgICAgICAgICAgICAgICAgICAgICAgICAgIC AgICAgICAgICAgICAgICAgDQogICAgICAgICAgICAgICAgICAgICAgICAgICAgICAgICAgICAgICAgIC AgICAgICAgICAgICAgICAgICAgICAgICAgICAgICAg ICAgICAgICAgICAgICAgICAgICAgICAgICAgDQogICAgICAgICAgICAgICAgICAgICAgICAgICAgICAg ICAgICAgICAgICAgICAgICAgICAgICAgICAgICAgICAgICAgICAgICAgICAgICAgICAgICAgICAgICAg ICAgICAgICAgDQogICAgICAgICAgICAgICAgICAgIC AgICAgICAgICAgICAgICAgICAgICAgICAgICAgICAgICAgICAgICAgICAgICAgICAgICAgICAgICAgIC AgICAgICAgICAgICAgICAgICAgDQogICAgICAgICAgICAgICAgICAgICAgICAgICAgICAgICAgICAgIC AgICAgICAgICAgICAgICAgICAgICAgICAgICAgICAg ICAgICAgICAgICAgICAgICAgICAgICAgICAgICAgDQogICAgICAgICAgICAgICAgICAgICAgICAgICAg ICAgICAgICAgICAgICAgICAgICAgICAgICAgICAgICAgICAgICAgICAgICAgICAgICAgICAgICAgICAg ICAgICAgICAgICAgDQogICAgICAgICAgICAgICAgIC AgICAgICAgICAgICAgICAgICAgICAgICAgICAgICAgICAgICAgICAgICAgICAgICAgICAgICAgICAgIC AgICAgICAgICAgICAgICAgICAgICAgDQogICAgICAgICAgICAgICAgICAgICAgICAgICAgICAgICAgIC AgICAgICAgICAgICAgICAgICAgICAgICAgICAgICAg ICAgICAgICAgICAgICAgICAgICAgICAgICAgICAgICAgDQogICAgICAgICAgICAgICAgICAgICAgICAg ICAgICAgICAgICAgICAgICAgICAgICAgICAgICAgICAgICAgICAgICAgICAgICAgICAgICAgICAgICAg YKVgDHEgCFLcKIJyMUNsDWk6B0hvJQFePVFkNH8yXS d3Jz8+DBzIKbEzHOC1vpHduG4LGU5qw9MnBJlzNFSnr3VjVXn8AM4LIVPsEUgzJR0RCUtaoi9LCOMzOT QukEHHf7dcSwRmFRW7MGLiNuadSZ9ESKCsZ3xjdhYqUGBoTWQCNEesCLNINZcmDSSRJL2ANcUgR5VztZ 82EBWQPn0+MAjauiJoElzSKjO7PSHwl6SxUTy5HH0G KSBxHkcvm1NuGgzrEVKEDIdqIK7ALGN8TXD8GZNkBu9DRFMtP904pnHjNG8QXw1QRoIaOJ6vyx6SAoyg FJLmVuvFAxa3ZEowRP4VuBMiJHoRjo3vdjBmibALx8UtukGziUQRj9afWNGiH8Godku8bxQtsjygKMTd UTBfVd7bTk8lVVEiOJWpAqJaEYFWFD1RWIQnXDPrrC ZvXKHfXRDLNF7QPDimKML3KZGkhbTulURxVOhmPH0SZRQimrSzGoPrZNMXERg+Kp3TDI5mt0IlPSutGP ThIL4ond6ZAJbVOcDnC2I3zEKsY0F6QIzwTe0RUJIzMNZwMkSfPAGYECcdMS3ZQW3hdxP0JJ4GkPRbNQ CjEINdxMLgIYm0N42cfHVkYDjpNX8DVEG+Autumn+Pg0K ZLPtXQJmPJJfRwCrCOWDLhOgI4WxT2OJx4UnG1LjSW86mZzrwoYyPAlmAJ0CSB7xGCJeHTJZTJ8OqWHo gU8aaxTgFkApRSWLCyLmG53ffKRmBDQeGKI6TEAbHj2HAUGdA2GihlHrzRdyyxLnTKViNNGIXU2BXLjp srTfeWIvrSsiCF19mMdkTK5OMp5IPnCuWJ2act0FuX CcCu6UIOKyIO9ORRDoMMNeYEAlWKL6MAYaJkBqIZcyOBXqLYGiSOB9OVGzTKVmAE2TFpZyPXQaJRBaNC djFWGxQAJnsn4OFRWvJRD4CHGrZfRkUTVsHIScQWrrEJYwSXHhZDI7QXCeSRXaRU8KExAoCQQfYVDgGk nlTJQgUBFqxm3QPMNnXWRcHpH8IoZvHBDuWIKkHBff WAPgERL9OdZ6MRWaTGNrFJ8LCuQcGTPlRYJ7KYHxWLGlFSMnbw4NXCIyFBOuIWU7RHTwDJIjZLXlHEhd ZUZlVKV1GLZzKRUsKJKfAA5XEdDdBNKhJOe9YkVlNMHdRMPkdv8TJGPwCPRfZKNfIXKnFVHiNJTnAPpg ANDlWYO4AUZsMXFsQSJwCX1KZqOnEQOkADQ9UlPmHU AxQHSttn8CUQMoRBYxEBd5OuHbHNHgGSPtODgmMYAjCLSpFLKgTCUhHTJhGR2BZeZeJLUlFNNqDCBoRI DaTGUwss8WNLGrHZZ1KLe9NOCiCJXcEHDvEPeeUMZaACRcXZR4SMRjDMQrNW7CBjGnMGLaEPD1GCOeGJ XdEBPogc0AWOPhHAE8WHo5LlWtSWWrFLNtFWdbTTDh HKTjPWBsTQCyCSKnJS5NJqBcENJsHWEdIWcxJOYpZEXhzt4BEJWnUVD7SgE2NcHnJNNqZLAqPTckWVEg WOZfZnbyHVBlMTMtQL4HDzXpSCXjVLXiYkEtVTGdUFGlmu9IGDFhGXA7ANIkXJKiGBPxCUQwGKioPRXl YQC2TeG8UBBfAHYqFT8TAdTaUGfkKRLCPoq8UGxuI9 w7UHFfSI8SK5Iya6WcXgppWGXHRBbaML0nckFyWPNkIb4LS9wXHjo1XLN0C2JfB4TzYRN2WUAmHlO9NB teVXVgZhOkYqVvWR5iMXV0UEC5JlOuRbC1LlDcEFSzTev3GNA7RBGuBdBoZUGbTmCeVA8PAh7ADxQ8MQ V4tPJoNm9MENW6WJGNNnOcNZ9LVNh= ID Date Data Source [id number] 04/21/2020 01:49:02 PM EDT [facility] MR EXTREMITY UPPER JOINT WITHOUT CONTRAS T [id number] RESULTInterpreted by:Shantel Kim MDINDICATION: Shoulder tendon and labral tearsTECHNIQUE: MRI of the left shoulder was performed without contrast.COMPARISON: Shoulder x-ray dated 03/02/2020FINDINGS: Rotator cuff: There is mild supraspinatus and infraspinatus tendinosis. There is a low-grade articular surface tear of the junction of supraspinatus and infraspinatus at the footprint with mild interstitial extension within infraspinatus (series 6 image 13 and series 8 image 15). Subscapularis and teres minor intact. No substantial muscle atrophy. There is mild fatty infiltration centrally of the infraspinatus muscle.Labrum: Lack of joint fluid and intra-articular contrast limits evaluation of the labrum and cartilage. There is diffuse intermediate irregular signal in the posterior superior labrum likely a combination of degeneration and chronic tear. There is fluid signal undermining the posterior inferior labrum most compatible with a small nondisplaced tear.Biceps: The contour, course, caliber, and signal of the long head of biceps tendon is within normal limits. Bone: No Hill Sachs or osseous Bankart lesion is identified. Marrow signal is heterogeneous likely due to marrow reconversion.Acromioclavicular joint: There is moderate acromioclavicular hypertrophy without subjacent marrow edema. No os acromiale. Type II acromial morphologyMiscellaneous: Mild subacromial/subdeltoid bursal fluid accumulation. No significant joint effusion. Quadrilateral space, suprascapular notch and spinoglenoid notch are normal in appearance. IMPRESSION: 1. Mild supraspinatus and infraspinatus tendinosis. Low-grade articular surface tear at the junction of supraspinatus and infraspinatus at the footprint with mild interstitial extension within supraspinatus. Very mild fatty infiltration centrally of the infraspinatus muscle. Rotator cuff muscle bulk is otherwise preserved.2. Tearing and degeneration of the posterior superior labrum with a nondisplaced tear of the posterior inferior labrum.3. Moderate acromioclavicular joint bony hypertrophy. Mild subacromial/subdeltoid bursitis.This document has been electronically signed by Shantel Kim MD on 04/21/2020 1:46 PM Name Value Range Interpretation Code Description Data Anat rce(s) Supporting Document(s) ID Date Data Source [id number] 04/18/2020 09:54:01 AM EDT [facility] Name Value Range Interpretation Code Description Data Anat rce(s) Supporting Document(s) Progress Note [facility] DBPKHa2wVgDDRzGs82/ZPNhtNTSzl0CqLDahFFf4GUcsGUJuM0QkYGM9sU3bAUQ8AFySHyIsVsDmVlUi lbm [file] ID Date Data Source [id number] 04/19/2020 07:35:58 AM EDT [facility] Service Cmnt XXX-Imp : NoneMicroorganism XXX Cult : 2019 nCoV Real-Time RT-PCR: NOT DETECTEDTest performed using the [employer] COVID-19 MDx Assay. This test is only for use under the Food and Drug Administration's Emergency Use Authorization.Additional information is available on the following FDA websites for health care providers and patients. https://www.fda.gov/media/121584/download , https://www .Prediculous.gov/media/411280/download Name Value Range Interpretation Code Description Data Anat rce(s) Supporting Document(s) ID Date Data Source [id number] 04/18/2020 09:53:[facility]-Imp : NoneMicroorganism XXX Cult : 2019 nCoV Real-Time RT-PCR: NOT DETECTEDTest performed using the [employer] COVID-19 MDx Assay. This test is only for use under the Food and Drug Administration's Emergency Use Authorization.Additional information is available on the following FDA websites for health care providers and patients. https://www.Prediculous.gov/[employer]/709514/download , https://www .Prediculous.gov/[employer]/140938/download Name Value Range Interpretation Code Description Data Anat rce(s) Supporting Document(s) Microorganism identified in Unspecified specimen by [facility] This lab was ordered by [facility] and reported by [facility]. ID Date Data Source [id number] 03/08/2020 09:32:58 PM [facility] Name Value Range Interpretation Code Description Data Anat rce(s) Supporting Document(s) Progress Note [facility] IRCSSx0nNtDAYcOi18/EWTioPOHui8OxULvpNFq5PXfoNNUrF7QeQNL0lQ4gODR6KAlOIyJvMrFmDZYk [facility] [file] WeRhThDGR0JGKrRvJtVQ2SXq0ENoB4CCZ1pIPtKu0MNbVyDCQEQkOqVO2KSSa= ID Date Data Source [id number] 03/03/2020 03:23:32 PM EDT [facility] XR SHOULDER COMPLETE [id number] RESULTIn terpreted by:Irvin Herndon MD[facility] shoulderINDICATION: PainFINDINGS: There are no prior films for comparison. The examination shows mild arthritic change involving the acromioclavicular joint. The glenohumeral joint appears intact. There is a rounded density measuring approximately 7 mm in maximal dimension with central region of lucency projected over the subcutaneous tissue posteriorly at the level of the proximal humerus of uncertain etiology. This may related to previous trauma. Clinical correlation recommended. The remainder of the examination shows no acute fracture or dislocation.IMPRESSION: No acute osseous abnormality. Mild arthritic change acromioclavicular joint. 7 mm calcification projected over the subcutaneous tissue posteriorly to the proximal humerus of uncertain etiology. This may be related to prior trauma.This document has been electronically signed by Irvin Herndon MD on 03/03/2020 3:21 PM Name Value Range Interpretation Code Description Data Anat rce(s) Supporting Document(s) ID Date Data Source [id number] 03/03/2020 06:07:30 AM EDT [facility] Name Value Range Interpretation Code Description Data Anat rce(s) Supporting Document(s) Progress Note [facility] ZHQCEy3fLgZLAzIg77/ANByrRNYzu9XiQZejQLs2RKilLNIuD2RaTHB8rL5tGTL8GKpAHpZnUvQlYKQ4 lbm [file] kD+WC1Gz23HFKlCt7tlUxvDB283HBxcASxmaH6 [file] ANTONIETA+ZHqdDXclqZm5sYXlPXQvFn4QTKXnNJOhXGCeSZQiUJRiASPrQXNrZTVdRLDkENKaPVCsBZWzMWIa ICAgICAgICAgICAgICAgICAgICAgICAgICAgICAgICAgICAgICAgICAgICAgICAgICAgICAgICAgICAg NQ9DABQaBQKqDASgGYCaCSAmOSShWWOhYEGcXQJpKX AgICAgICAgICAgICAgICAgICAgICAgICAgICAgICAgICAgICAgICAgICAgICAgICAgICAgICAgICAgIC XpTJBmFSZiNSWgAY5NVCCfLYHzWCWmAGFbYPPsPQJfWWFjFRIqOSIyLDMaLWRcIJJjOGOdDATcGLQbHT AgICAgICAgICAgICAgICAgICAgICAgICAgICAgICAg GRIcJVVdMLUgAQKjTKHyPJZsNYDfEX0QZSOfGXPvUEIkNMEfGKWgOGKgDEBxVIZuILAuMWDvMRSkEYHi ICAgICAgICAgICAgICAgICAgICAgICAgICAgICAgICAgICAgICAgICAgICAgICAgICAgICAgICAgICAg IILfQA8EPLQzGSXhJUItSZDqILViLJNgAVUiENUcNA AgICAgICAgICAgICAgICAgICAgICAgICAgICAgICAgICAgICAgICAgICAgICAgICAgICAgICAgICAgIC NpQCQmPVAtKGCfLNDwHB5TDCKkCAMnFGPgMSUwMAJaMSTcBXPfCZZvGMCiLLLeWTClCYBnHDPcJZOkWA AgICAgICAgICAgICAgICAgICAgICAgICAgICAgICAg YBNvLTEbQTAeARJbIBTiEFKkLFBsVIOcZR9XASGvJFKjGEKwKBVnMOUfMAIlKQKfRUEbDZVtBVFoZVMc ICAgICAgICAgICAgICAgICAgICAgICAgICAgICAgICAgICAgICAgICAgICAgICAgICAgICAgICAgICAg WMBuZKPeIW9CLOEwDPXhXRWuCAVtZBNwMOJoVLUmNJ AgICAgICAgICAgICAgICAgICAgICAgICAgICAgICAgICAgICAgICAgICAgICAgICAgICAgICAgICAgIC RwZIWpKBOiPWLfKTPqGLQdQX3ROQSgUBGfWNWuRCPeAWXqSNIvCICeIAMiSKQwLMGuCFPzXSDzNKEmYK AgICAgICAgICAgICAgICAgICAgICAgICAgICAgICAg JJBtVDEdFNYzARMfOLNrIPItWZTcINLzEKDtQH6YIDKwPMIxEELpBCErXDFcYORaRLShCKRqUHCzYQRq ICAgICAgICAgICAgICAgICAgICAgICAgICAgICAgICAgICAgICAgICAgICAgICAgICAgICAgICAgICAg HDTrUUMiPFRqAO3PDA60oVBnm7N6PHVuNN5cbkt/Pg 7KNPiigaKnrLEyKR0FFjHtYC7bnn3OItTlIZ8itz2ZXFoIEfQiJ5Z1lOStQRYxQPYXZjXbO20nNAuoDi 92XOieOIEgLaNeWFs5Pt3QTaJyS2scCNXsSnZ9ZZOkAgO3YHNeMvH4ONHdWxSgXAUtLZFeGH0CWAAxT7 13elFqDL0VKj6TRvBqEB1uoq8ENybxBIDhQbnUPvc5 UWuzOP8ShVScrGPnWQCoZVEBUqJvC9gzn1PzUjffUTAJMUrsTF2Xh2NvqQFpNQv+Yx5YUC7rw9TcFMud ZFApPU8aif1GZCdHHoXlU5KllKyxRVGpc7ogSGBwKB3ntOOzSTG2NCndI6nzfguuNIZSEKnleVBsGEHw HN3XKQZ6PTUlBO7jDAQbAQKlJbJvRGYBRO1GKVKdZU YxcJCjUAWgSJUQPN0VHZlzBDC9CPPyygSupEYuCKxdBB7QQHNzxxDePhjfVLOLLIu+Qv5OQR5xc2TvOO wtZPRrVJ8vja3KSHpHIaNnZ4Y1lVFdP9A2GXlfPq5HYHYmFLCmXvQmVBEUOZnoKW3ETC8gfsD8WW3VgV OcSKPaCVAcxMEqIKo9D13wdDWdKEarGY8MTWT+Autumn+ Vb7QXYMaTCMmWREwLeAaXEPCEnAcH9LfC4TBz4AuV8OyHV73lMsmrfUvINanUR3XUD0zJGZsFECHQR6Y yFOebX2mcqNyKROhTXRDGrYgH76naHQlYAVrWFK1MDPyHq3ZCBPoJ1TcazCwgSwasbAkZMYjIOIKNC9O RYqvslFbfGBnjKpjCU16zUmwJW1GCv9WZuBcQK2wop 9RvTExZt0JVKYkEE1ZAYKnQSVvIGZbQUU8OPRqGsYcGGtdDHNdXWBzFHX7IEAkTQFaXY1MEzOhGLJgWZ JaQNQpKVVqPGYcek1GIGYnKLC7Lso8KCLdXIWnJPPiIUjsBKJlVPPrEKR9INEdAVNeRF4XOgLdYFLjJF MvWdCqHBLeUEXjmq3DGKAiPPVyRuM6XBWaZZNkNALf HTqmFGWvQYA9VVE7QGChFDZcLG3KUmDkRQMeSCKdWhKcJYVvDZUoza6LWQWfCPByCPAeIaKjCNDwMSJm KMvrBWInYZG6DRX7VSLaHZAlPX0VKpPjXNExMSG0UdnjZBFnWHIpsn7TOHCoGZNmNPA2YPFwHXHyCICu PGvcQEYwQPDqPZQ2OHTbYWGaGN0FSzZzPTBnROQjEZ RkKDMfZNEpxr4EFNIeHWRgWrJpQGTyRAYqOPQrVYreIPYuRKHfFHqyISHaDKUeFL0TRrMjETIfYYN8ZA XzWDFzWVAogc9EUETuDLUpRvn9GlQeLEFzYDArOEkyKKMhOEXpELgnTZRnQCQmKK8PIpNvAEZcXNU7Lm SqMOEjROVsde7NCTYdOZW4Pcr4ZLQmUAIzJPZsXNfg IHPlGOB3YVPcRDXoSWSlIK5MLdLwQEEoHZJ9WrznAWJcIIVygq8MVPFcEHT1NCKnIbByEMGcPGAcRGmq UHKiPIU4VTVkORMtPPMiXP0OEyHoAEAhWWE8KCkaKNMnLZWfwu1KCUTrNZZ1RkXsIDRxSONgOALuPYvu GQCjVRX9PHVpWRYgHNIrAH6LScHbDGQyBAl6TkPvMT RzUEEntq6SJKZkKYT2LAV3SuKhKLFqCOApJNu0kcDwfVUiUBq9GZ5QO1VjmrRsMeNTLh4Mg788SVZlQF CrQh3OE3ikJs4sYCPgDANCUg1WGGd3Acr2XnsrF8U2SdJeBSDdCfLhTIHsCHK6ZUenIkK6MYQ+IDxmNz XzVBA4GyN7CWH2SQEfGqT3UPUgXGMrBOKmNkC2Kz7x XSANCj4+SUtwaWVssCxyCIRTKpM8TvHmZNuxBQAPZt4P Procedure Social History Code Duration Value Status Description Data Source(s ) Alcohol intake 04/28/2020 12:00:00 AM EDT Current drinker of al cohol (finding) completed Current drinker of alcohol (finding) [facility] Smoking 04/28/2020 12:00:00 AM EDT Former smoker completed Former smoker [facility] Alcohol intake 04/22/2020 12:00:00 AM EDT Current drinker of al cohol (finding) completed Current drinker of alcohol (finding) [facility] Smoking 04/22/2020 12:00:00 AM EDT Former smoker completed Former smoker [facility] Alcohol intake 03/03/2020 12:00:00 AM EDT Current drinker of al cohol (finding) completed Current drinker of alcohol (finding) [facility] Smoking 03/03/2020 12:00:00 AM EDT Former smoker completed Former smoker [facility] Vital Signs ID Date Data Source UNK Name Value Range Interpretation Code Description Data Source(s) Body mass index (BMI) [Ratio] 36.6 kg/m2 36.6 k g/m2 [facility] Body height 62 [in_i] 62 [in_i] [facility] ([facility], [facility]) 5'2" Body weight 200.00 [lb_av] 200.00 [lb_av] [facility] ([facility]) Body temperature 97.5 [degF] 97.5 [degF] [facility] ([facility]) Oxygen saturation in Arterial blood by Pulse oximetry 96 % 96 % [facility] ([facility]) Respiratory rate 20 /min 20 /min [facility] ( [facility]) Heart rate 94 /min 94 /min [facility] Regular Diastolic blood pressure 88 mm[Hg] 88 mm[Hg] [facility] Systolic blood pressure 117 mm[Hg] 117 mm[Hg] [facility] ([facility]) ID Date Data Source [id number] 07/10/2020 10:54:45 AM EDT [facility] Name Value Range Interpretation Code Description Data Source(s) WEIGHT RECORDED 98 KG 98 KG [facility] spital Height 157.48 CM 157.48 CM [facility] status [Interpretation] - Reported N N [facility] ID Date Data Source [id number] 09/22/2020 07:29:09 AM [facility] Name Value Range Interpretation Code Description Data Source(s) WEIGHT RECORDED 221 lb 221 lb [facility] Body height Measured [address] [facility] WEIGHT RECORDED 220 lb 220 lb [facility] Body height Measured [address] [facility] ID Date Data Source [id number] 03/11/2020 12:39:55 PM [facility] Name Value Range Interpretation Code Description Data Source(s) WEIGHT RECORDED 220 lb 220 lb [facility] Body height Measured [address] [facility] Patient Treatment Plan of Care Planned Activity Planned Date Details Description Data Source (s) Omeprazole 20 MG Delayed Release Oral Capsule 02/17/2020 12:00:00 A M [facility] atorvastatin 20 MG Oral Tablet 01/14/2020 12:00:00 AM [facility] Hydrochlorothiazide 12.5 MG / Losartan Potassium 50 MG Oral Tablet 11/29/2019 12:00:00 AM [facility] osemigdio
--- OUTSIDE RECORDS SUMMARY | 2020-11-11 17:07 | CCD | Continuity of Care Document ---
Author Author Rashmi OVALLE Organization Unknown Address [address] [place] [id number] Phone [phone] Care Team Providers Care Certified Prosthetist Vice President Name Role Phone [place] [employer]li AUTM [phone] Problems Active Problems Provider Date Type 2 [...]
[2020-11-11] MEDS ORDERED: METF750T36 PO (17:09)
--- OUTSIDE RECORDS SUMMARY | 2020-11-11 18:50 | CCD ---
Author Author [facility] Organization [facility] Address Unknown Phone Unavailable Care Team Providers Care Shop Superintendent Name Role Phone DRAZEK, I RAMIRO PA [...] Saeed COOK MD Unavailable Unavailable KALLIE, Saeed COKO MD Unavailable Unavailable KALLIE, Saeed COOK MD [...] is protected by Article 27-F of the [facility] Public Health law. If you continue you may have access to information: Regarding HIV / AIDS; Provided by facilities licensed or operated by the [facility] Office of Mental Health; or Provided by the [facility] Office for People With Developmental Disabilities. If such information is present, then the following [facility] mandated warning applies: This information has been [...] law may result in a fine or care home sentence or both. A general authorization for the release of medical or other information is NOT sufficient authorization for further disc losure. Advance Directives Directive Description Senior Environmental Technician Photo Producer Status Observation Descr iption Data Source(s) No Directive Type specified PT STATES NO ADVANCE DIRECTIVES completed No Directive Type specified [facility] Allergies and Adverse Reactions Type Description Substance Reaction Status Data Source(s ) Drug Class NO KNOWN ALLERGIES NO KNOWN ALLERGIES [facility] Family History Family Member Name Family Member Gender Family Member Status Date o f Status Description Data Source(s) Unknown Female Problem [facility] ([facility]) Unknown Unknown Problem [facility] ([facility]) Encounters Encounter Providers Location Date Indications Data Source(s ) Outpatient Attender: GIDEON hawkins 11/04/2020 01:00:00 PM EST [facility] ([facility]) Outpatient Attender: COLLIN MCFARLAND 07/30/2020 12:00:00 [facility] Outpatient Referrer: COLLIN MCFARLAND 07/20/2020 12:00:00 [facility] Outpatient Attender: RAMIRO Carrasco nder: JOYCE ARREGUIN MDAdmitter: RAMIRO SEAYConsultant: JOYCE ARREGUIN MDConsultant: RAMIRO SEAY OUTPATIENT-[facility] 07/05/2020 08:05:00 AM EDT - 07/05/2020 08:54:00 AM EDT [facility] Patient discharged. Outpatient Attender: JUAN HEATH MD 05/04/2020 12:00:00 AM EDT [facility] Outpatient Attender: COLLIN MCFARLANDReferrer: COLLIN MAYS [id number] 04/27/2020 12:00:00 AM EDT [facility] Outpatient Referrer: COLLIN MCFARLAND 04/21/2020 12:0 0:00 AM EDT Impingement syndrome of left [facility] Impingement syndrome of left shoulder Outpatient Attender: COLLIN MCFARLAND [id number] 04/20/2020 12:0 0:00 AM EDT Impingement syndrome of left [facility] Impingement syndrome of left shoulder Outpatient Attender: DEFAULT / GENE ALY / UNKNOWN PROVIDER ALIASES Attender: LIZZETH SOTELOReferrer: JUAN HEATH MD [id number] 12:00:00 AM EDT - 04/19/2020 12:00:00 AM EDT [facility] Outpatient Attender: JUAN HEATH MD [id number] 03/02/20 12:00:00 AM EDT - 03/02/2020 03:47:42 PM EDT Trigger finger, left middle finger [facility] Trigger finger, left middle finger Outpatient Attender: COLLIN MCFARLANDReferrer: JUAN HEATH MD [id number] 03/02/2020 12:00:00 AM EDT Pain in left [facility] Pain in left shoulder Outpatient Referrer: COLLIN MCFARLAND 03/02/2020 12:0 0:00 AM EDT Pain in left [facility] Pain in left shoulder OFFICE OUTPATIENT NEW 30 MINUTES Attender: RAMIRO POLANCO Physic al Therapy 01/02/2020 10:30:00 AM EST MEDENT ([facility]) Functional Status Immunizations Vaccine Date Status Description Data Source(s) INFLUENZA VIRUS VACCINE QUADRIVAL [id number](6 MOS AND UP)/PF 08/04/2020 12:00:00 AM EDT [facility] Medications Medication Brand Name Start Date [...] 20 mg by mouth Two Times Daily [facility] 800 mg 01/15/2020 12:00:00 AM EDT tablet [...] Oral active Take 20 mg by mouth [facility] 20 mg 11/29/2019 12:00:00 AM EST capsule,delayed [...] active Take 1 tablet by mouth daily [facility] al 50-12.5 mg 08/15/2019 12:00:00 AM EDT tablet 90 TAKE ONE TABLET BY MOUTH EVERY DAY TAKE ONE TABLET BY MOUTH EVERY DAY SOLD: 11/30/2019 [facility] Insurance Providers Payer name Policy type / Coverage type Policy ID Covered alliance party ID Covered alliance party's relationship to high Policy High Plan Information [facility] [id number] [facility] [id number] [facility] DIV [id number] EMPIRE PLAN [facility] U [id number] Spouse [id number] EMPIRE PLAN [id number] Spouse [id number] EMPIRE PLAN [facility] U [id number] Spouse [id number] [employer] [id number] SP [id number] [facility] [place] Health Maintenance Organization (HMO) [id number] Family Dependent [id number] [facility] [place] Commercial [id number] Self [id number] [facility] EMPIRE PLAN [id number] Sp[facility] [id number] [facility] O [id number] P [id number] [employer] P [id number] S [id number] [employer] EMPIRE REBA DIV [id number] Problems, Conditions, and Diagnoses Code Display Name Description Problem Type Effective Dates Data Source(s) 26374337 Type 2 diabetes mellitus Type 2 diabetes mellitus Prob beryl 11/04/2020 12:00:00 AM EST MEDENT ([facility], [facility]) [id number] Pure hypercholesterolemia Pure hypercholesterolemia Pr oblem 01/02/2020 12:00:00 AM EST MED[facility] ([facility]) [id number] Essential hypertension Essential hypertension Problem 01/02/2020 12:00:00 AM EST [facility] ([facility]) M75.42 Impingement syndrome of left shoulder Im pingement syndrome of left shoulder Diagnosis 04/21/2020 11:06:30 AM EDT [facility] M25.512 Pain in left shoulder Pain in left shoulder Diagnosis 03/02/2020 02:08:16 PM EDT [facility] M65.332 Trigger finger, left middle finger Trigger finge r, left middle finger Diagnosis 03/02/2020 01:12:37 PM EDT [facility] Surgeries/Procedures Procedure Description Date Indications Data Source(s) SURGERY CASE REQUEST OUTSIDE FACILITY ONLY SURGERY CA SE REQUEST OUTSIDE FACILITY ONLY Routine 04/28/2020 8:06 AM EDT Impingement syndrome of left shoulder Labral tear of shoulder, left, subsequent encounter 12:06:49 PM EDT Labral tear of shoulder, left, subsequen t encounterImpingement syndrome of left shoulder [facility] Labral tear of shoulder, left, subsequen t encounter Impingement syndrome of left shoulder Results ID Date Data Source [id number] 11/04/2020 12:00:00 AM EST [facility] Name Value Range Interpretation Code Description Data Anat rce(s) Supporting Document(s) SARS-CoV2 Rapid Antigen Positive [facility] This lab was ordered by [facility] and reported by [facility]. ID Date Data Source [id number] 07/07/2020 09:45:04 AM EDT [facility] Note status: FINAL (SIGNED)Patient name: JENNI PALMERate of : 1960Visit ID: [id number] record number: [id number]: 60YSex: FemaleRoom [facility] 2Date of service: 07/06/2020 13:52Creation date: 07/06/2020 [...] rce(s) Supporting Document(s) ID Date Data Source [id number] 07/05/2020 08:39:00 AM EDT [facility] Name Value Range Interpretation Code Description Data Anat rce(s) Supporting Document(s) GLUCOSE BedSide 293 mg/dL 70-100 [facility] [address] [facility] MeterDoctor No tified ID Date Data Source [id number] 07/07/2020 08:35:00 AM EDT [facility] CULTURE OBSERVATIONS Few colonies of mi xed growth consistent with skin semaj present Name Value Range Interpretation Code Description Data Anat rce(s) Supporting Document(s) ID Date Data Source [id number] 07/05/2020 11:50:00 AM EDT [facility] Name Value Range Interpretation Code Description Data Anat rce(s) Supporting Document(s) COLOR YELLOW [facility] APPEARANCE HAZY CLEAR ! [facility] SPECIFIC GRAVITY 1.020 1.000-1.030 [facility] pH 5.0 5.0-8.0 [facility] LEUKOCYTES NEGATIVE NEGATIVE [facility] NITRATE NEGATIVE NEGATIVE [facility] PROTEIN NEGATIVE mg/dL NEGATIVE [facility] GLUCOSE 1000 mg/dL NORMAL ! [facility] KETONE NEGATIVE mg/dL NEGATIVE [facility] UROBILINOGEN NORMAL mg/dL NORMAL [facility] BILIRUBIN [facility]GAT[facility] mg/dL NEGATIVE [facility] HEMOGLOBIN NEGATIVE NEGATIVE [facility] ID Date Data Source [id number] 04/28/2020 08:07:43 AM EDT [facility] Name Value Range Interpretation Code Description Data Anat rce(s) Supporting Document(s) Progress Note [facility] AOMHSx1tDsEYJnGd94/OPGtlNFHto3HyXHngWBw5ZKbcTTOdM3ImZAY8yE6qVPT1KLiSSaQdLuZkFvYf lbm [file] JTheZVv3EZeiRydgHYG1Xd4jIPTLIc2+ECbobEEutUzuYLFUIrQqQnc1TXoqXBPHEo6E ID Date Data Source [id number] 04/22/2020 07:57:32 AM EDT [facility] Name Value Range Interpretation Code Description Data Anat rce(s) Supporting Document(s) Progress Note [facility] IGUJIf3cFkMFEgUb14/ODQnrKTMre0LePQrxYMx8SVacXGXuY1QhXTA3xI5nAAA4PEiTEkIkTvYoNtT0 lbm [file] lar8WmU6UNnR6vPyxUw7r1yQW/jboss developer/XgCNAufIiZpz17V4SOYaeGudet3CZve8hoQ7WriKHTdGajpcge [file] ICAgICAgICAgICAgICAgICAgICAgICAgICAgICAgICAgICAgICAgICAgICAgICAgICAgICAgICAgICAg ICAgICAgDQogICAgICAgICAgICAgICAgICAgICAgIC AgICAgICAgICAgICAgICAgICAgICAgICAgICAgICAgICAgICAgICAgICAgICAgICAgICAgICAgICAgIC AgICAgICAgICAgICAgICAgDQogICAgICAgICAgICAgICAgICAgICAgICAgICAgICAgICAgICAgICAgIC AgICAgICAgICAgICAgICAgICAgICAgICAgICAgICAg ICAgICAgICAgICAgICAgICAgICAgICAgICAgDQogICAgICAgICAgICAgICAgICAgICAgICAgICAgICAg ICAgICAgICAgICAgICAgICAgICAgICAgICAgICAgICAgICAgICAgICAgICAgICAgICAgICAgICAgICAg ICAgICAgICAgDQogICAgICAgICAgICAgICAgICAgIC AgICAgICAgICAgICAgICAgICAgICAgICAgICAgICAgICAgICAgICAgICAgICAgICAgICAgICAgICAgIC AgICAgICAgICAgICAgICAgICAgDQogICAgICAgICAgICAgICAgICAgICAgICAgICAgICAgICAgICAgIC AgICAgICAgICAgICAgICAgICAgICAgICAgICAgICAg ICAgICAgICAgICAgICAgICAgICAgICAgICAgICAgDQogICAgICAgICAgICAgICAgICAgICAgICAgICAg ICAgICAgICAgICAgICAgICAgICAgICAgICAgICAgICAgICAgICAgICAgICAgICAgICAgICAgICAgICAg ICAgICAgICAgICAgDQogICAgICAgICAgICAgICAgIC AgICAgICAgICAgICAgICAgICAgICAgICAgICAgICAgICAgICAgICAgICAgICAgICAgICAgICAgICAgIC AgICAgICAgICAgICAgICAgICAgICAgDQogICAgICAgICAgICAgICAgICAgICAgICAgICAgICAgICAgIC AgICAgICAgICAgICAgICAgICAgICAgICAgICAgICAg ICAgICAgICAgICAgICAgICAgICAgICAgICAgICAgICAgDQogICAgICAgICAgICAgICAgICAgICAgICAg ICAgICAgICAgICAgICAgICAgICAgICAgICAgICAgICAgICAgICAgICAgICAgICAgICAgICAgICAgICAg JTOnZPKpTNXwHOEyGWJwWQi2S2viXWMqYYHzXO3gHV d3Jz8+SLyNVsMpMSP5riGylE6WOK5vz8ObUPvjLKGiu9NoYLo6SV5FZEUpIWhaCB6HTKedkh4OMPInVN OwdKKBz7umQaTbPVE0QDEsWywrZO1YAWEgM5hnnxKkWTYjSSBGNZjeYOQLTUisDOLFVD5BQbBdQ2FtjH 44TEAMWy4+EKxogzUpBeoAStN1QIAnh5CqGCp8WD8Z SVJhFdwqy5VtLwmeLJEUYGcyUZ4WZRZ4ZVR6DEKkWc1DBYLwH006nfUpBU6BFs0ORuBcLU6ldl5JVmit ULPuFihGCum2TWbxBK0HuLDpBZjLpj8mltLbicBZh8TiaiKtyWKRm3rqAOEqZ5Thcyt1mzPdogkhDETz POMxPe1nMb8mSGMvFXTuWpLnKYEXCT9DKPDtQYMluU BaKINlETZUZI4KDFieODM4FMYcxtXyfCQsWWlhXA6GAXXhovDiYkWiECWSSIz+Sp0HBH1ab1NmTUdbWC TlPR7okk7MSBvHSiLxW1U7uWSeY5X1YPacFs9IUDIpXIAsRfOcJEJYMEfxHW3DAI3zliD8GG5NkZVfRI BkGJDvcEVxFQr5M38pmRCsGNljYJ9UVVN+Autumn+Pg0K AZLcNZZzJYAxFyQcCDRMVoBfP0KqH7HLk6QsN7KjBM28jDnpsdXzLHcjYS0IYW6vGIElVTARBY2CiRCy fY1kvbUaQsAdQLEARcEdZ89mpOLpWWBkSBE0CQKyJt2RWJYxR1CprwSskJnzfgWtFUYoMQCJVG1AYOme xfKbgPEblZcwSK80vKllHW8WVt1KZnBzFQ4zaj4HaG SjCq9OSUCbHL6AXOIyHBZyWPFmOZE9PKSoMsSwZCwtNJZoKNEsIFC0YDKgCQEhCP3RDeHnXLTdOKNrBV noMYLsCOKwkx0AHDNmXZQ8OBYeKgHfNRSoSSAoAJtnOHQlXAVlWKV5FAXjCXRwAC8ESzJqOLArMTJuIy vxGHQwLCCplw8IIEGwKTRjOfQ2WmLhJCQvGJIcGFmm YNZxPCA0HdV3RNAaOPVxFC7TSeZwVKIzHPF1GQBfYMCrILGdjb3OCJSoBYYlFOS6LZKrCWHeSSIzIHqh ETJwUME1LTRnKHGjNBUsMB3CKiAdWNHzILf3KkFdHNDiTCAiyv9ZYZTlBZHhBABvWXKbKGUtVIUwQFrd GYMwWFG2EAGkTTYyBOWoYH6TBaYqFGYyHQY5OxInMU FtHTGquv0VHGGzSAAzKTs0BhHeXHRdABNfAZbtMSQlEYAiEABnPDYlOPGmXX3EVyGmNHDoSURrJOKlNX SeRIGwgj5ZELMlIMX9WNv1XAYdRRBtESIzLHrwENDxIRVmRUU5FZQmONFnTQ3IPzMcDAFuKOI3RBXqCC PlQIZrgf1ROWRsGWP6JRg5JnJfHLKePIYfYVzpOEYi LMHcCOZkGTDbLBOfMI1DQeUiMOFcBSDoGVfdGLOdYLVlor6CMYYhZPE7TpW4AcYaDQAbKZTaMDykXVZx DQUvJmkpAHWcFVViEJ8JZyIxLPIqTCGbYjWmYIOaVDYfov7KWQGzOHR6SNKvAZNlCDNzYYRqFBgvJKSl UZI9DaY6ZVGzNYBeVF1LZlZxNJrlQLWRXzq7TMnjC0 b0OYJdQZ6FQ5Rpc3UhNkuzSFZERIcnCT4sexGtJSMaEk9HH1pEBin1LXH0J1FaS2YcUSP8TTUjGgD2IZ qgPTYdBgSjYkLiZB0aJIW0SRV7OcVlXvM3SkShNOEsIlg5ROX0ELVnHjFhPTQeMnYlLG5FVj5RQeM1UH H0bVUuBu5SOIE3CIYVAwRbHU7ZTNm= ID Date Data Source [id number] 04/21/2020 01:49:02 PM EDT [facility] MR EXTREMITY UPPER JOINT WITHOUT CONTRAS T [id number] RESULTInterpreted by:Shantel Kim MDINDICATION: Shoulder tendon and [...] rce(s) Supporting Document(s) ID Date Data Source [id number] 04/18/2020 09:54:01 AM EDT [facility] Name Value Range Interpretation Code Description Data Anat rce(s) Supporting Document(s) Progress Note [facility] PAKHOb9dXmVPXpKf39/SEFmpKVCvj9BhEOzhPKd3PKgeDXMiH7AfNIH3sV8aEIU3MWfZKvRqBrRtBxYz lbm [file] ID Date Data Source [id number] 04/19/2020 07:35:58 AM EDT [facility] Service Cmnt XXX-Imp : NoneMicroorganism XXX Cult : 2019 nCoV Real-Time RT-PCR: NOT DETECTEDTest performed using the [employer] COVID-19 MDx Assay. This test is only for use under the Food and Drug Administration's Emergency Use Authorization.Additional information is available on the following FDA websites for health care providers and patients. https://www.fda.gov/media/589541/download , https://www .Gluster.gov/media/969103/download Name Value Range Interpretation Code Description Data Anat rce(s) Supporting Document(s) ID Date Data Source [id number] [facility]-Imp : NoneMicroorganism XXX Cult : 2019 nCoV Real-Time RT-PCR: NOT DETECTEDTest performed using the [employer] COVID-19 MDx Assay. This test is only for use under the Food and Drug Administration's Emergency Use Authorization.Additional information is available on the following FDA websites for health care providers and patients. https://www.Gluster.gov/[employer]/601891/download , https://www .Gluster.gov/[employer]/275876/download Name Value Range Interpretation Code Description Data Anat rce(s) Supporting Document(s) Microorganism identified in Unspecified specimen by [facility] This lab was ordered by [facility] and reported by [facility]. ID Date Data Source [id number] 03/08/2020 09:32:58 PM [facility] Name Value Range Interpretation Code Description Data Anat rce(s) Supporting Document(s) Progress Note [facility] XYSRBf3aVgREIoZk84/CHLhuKASdw7PgRZnpFRn8JRpfKTWqT3JmGSS5jM2wNZJ8QWqOQgDsYaLeALOf [facility] [file] VvOfPbHGR9QYUfMjLeBI0ICn1IYiS3GHE4qDCmTb9UXdWzRCAIVsPvCI3EMWs= ID Date Data Source [id number] 03/03/2020 03:23:32 PM EDT [facility] XR SHOULDER COMPLETE [id number] RESULTIn terpreted by:Irvin Herndon MD[facility] shoulderINDICATION: PainFINDINGS: There are no prior films [...] rce(s) Supporting Document(s) ID Date Data Source [id number] 03/03/2020 06:07:30 AM EDT [facility] Name Value Range Interpretation Code Description Data Anat rce(s) Supporting Document(s) Progress Note [facility] FRMLTy7kOaUNWsPp68/ONEptVOHqc4HkUQhlNOg3FLpeYCKdF8KhDNV8iX6dAMA2MMpLPeBuKpAvGYT8 lbm [file] kD+UU7Kh87WINbTa8xnEbiEZ834KRfkUTonzQ9 [file] ANTONIETA+JAkbZUuwxCf0eLJvCJJeBp6XVWKlTPYaIHYpXUHaZMUaVEHdXDJeHLWhGRQoBFSrRSRzMLAjSUBk ICAgICAgICAgICAgICAgICAgICAgICAgICAgICAgICAgICAgICAgICAgICAgICAgICAgICAgICAgICAg LB1BWUNnPZTsJMUrVFXdWTAoTYBzEOMsVTHcBBCtLV AgICAgICAgICAgICAgICAgICAgICAgICAgICAgICAgICAgICAgICAgICAgICAgICAgICAgICAgICAgIC HeKSDqVYRpEBDmYQ4LYYVaGAWwUFQuOCKhMLZzZRUhFNKrJZQfAIPmBZQdOCQfHZQcDXViRJMsSGIvWD AgICAgICAgICAgICAgICAgICAgICAgICAgICAgICAg RPZnVIPgZSDqOHAjVPNiQFWxAJNnSM6XHFBpHOKcTMQfRUAxESVqTTQmZUOdPEDsWLZxJNFiZFVxDJMa ICAgICAgICAgICAgICAgICAgICAgICAgICAgICAgICAgICAgICAgICAgICAgICAgICAgICAgICAgICAg BIHySU8HRRJrMAXwSOQaHEMkQAWoNTNdFOYcKUMxRF AgICAgICAgICAgICAgICAgICAgICAgICAgICAgICAgICAgICAgICAgICAgICAgICAgICAgICAgICAgIC EfICKfTLOzYGApWRCdLO8HEIUwCMXtYFEoRBOeUAVzVUZdFSPbJKEyTYRtOZDgNGKxTPEjDOTdIXRkDP AgICAgICAgICAgICAgICAgICAgICAgICAgICAgICAg HSJoKHQaTDJsOSQpFLKgRNKcFOYaTXQtXM9SLJGhWUObUEWrTNDuFOLxWTMqBQYqZEYjLSRxHFKuUMUq ICAgICAgICAgICAgICAgICAgICAgICAgICAgICAgICAgICAgICAgICAgICAgICAgICAgICAgICAgICAg ZGRgUNOhEF6NXCIuJIFsXTHhJVUgYHJlNFWbCRUfDQ AgICAgICAgICAgICAgICAgICAgICAgICAgICAgICAgICAgICAgICAgICAgICAgICAgICAgICAgICAgIC UqTGRlAKPeIDPjIUByBSPvHS4VRFHzWUVcYAJbKNXmSNBuVANmAXDnLMUhQMVzQEYdJERgBZGbCSXbBV AgICAgICAgICAgICAgICAgICAgICAgICAgICAgICAg TKNsWVPbVEOdRWVaVYVkMUXsACHmVBLiPRBbEQ8QFIQrMIJrIOGwEYYwJGEgYRDuZJJcFZVrFQUsQXUq ICAgICAgICAgICAgICAgICAgICAgICAgICAgICAgICAgICAgICAgICAgICAgICAgICAgICAgICAgICAg HCDwPFIhYSBbGO6MGC17kMTid1S5AJLpTD6sjtu/Pg 7ZPGlbinKbvNKqYW4FDfUvCW8caz3LKaQrXQ7qfw7ZKYnKOjSyB4E7eWQqCQNdAEGULqGjM13iJXbkFq 97BVdxFUWzZqVjDZv1Rv1TBnXzN1joJNUxBvR3KHSqGdR2KTIeJyI6NGMxPdUpGGMbRVVgFZ9WBXWcY8 40tvMcCB3UJh4RScVoOM4ckz4ZPxkwIKDwFxsQKaq1 GLpbBL4YjRAtfQQfBXNaJNTYYaPsP7ggo3KnBjalXBDSRIprJG5Zy4JbkFDlRBf+Yn8YKJ2ff0IcRXvk HRUzIN9ajy3ZASiUBgXwQ2UooBstHOOsn8mmBQFrTO6mhJDcRAW9WVblP8elmicnNHZGCVlhiKHiARJc LK5PKOC5WTGbBF1kNXZtJIRfCcCiYDUAQC3JQYUePU TcmNLtLWMtBUWGYQ5OQTotOES0YNZlstWlkPLzSLzlMF4HYHIiehRyLjlyKKOYOXq+Ly4YBG3pt2PbDA opZDOoPL6bqz8VZKzQOmHeS1S3dENtN5S3TKguFr0NQOBdSTExNbRwKWEXYNpjMQ4GKU6bqwV2IN1WlY DeQSEbHSQbjFVeBCg8Y95iiMRhHYnvBF4LFYJ+Autumn+ Ce1OWVShTQZrZDXkAeSsRKTURpNcY3KcJ2MCn8IvM7OiJP95pYwjwjPfUToaKK2OYX9wVQKfLWKDXC0P aGNrlX2skcEtSCXnRURUWvBsB35ehPEqKACxKRU2XLWkWn5BLPZiF3WatzWyjKnvpkQgOSZhPBNMHD1A FGemdaBjuOCeaZweRO84rKlsQL8XEn6CPoNhBL7ium 2OrWJkJg3STHOiHG0YMPGqUFReBRFlJNL1NAHmMfJlOXflDJHhZXNrPQD0TVStWRYqLE1EFdAhNUKnIM IrCSOdVLLhSRAcft6NEDMqEMQ1Maq9GXAiAKRnAFVaETfsXTMbYJZpMGN9FNEyXWRbSP8NQyWwPEIwPW RdMcRgJYGqGUYnbw8ITEFaZGAuUkE6BWBwEBOiYAOs PUkgTHQtRYL1BSA3PQMjKUGiEY3AUtJsKNFdPEQeAfFrTVKmIXZvsy8DUIAsUZYwSJBaBoCeZFVwQQPs IFvxWBAdVWE7RCT9KCLfMFJdXU1AXqQyPOViONV0FgicDBRxMYWdan5EFVHyUTXbLOS6PEReFTTbBEKs PBvfIKQeCEGpAPI2AVRqWRFvTQ1JRoDiOQUxOOQaJT HnBBWrERThxw7QMZLgLACvBjHeUXGeVLAbQEScEUtlIXUlDPMfCYniEXRcOVSlJF8DZrDxKSTbSQZ6OS GmIZFoRBThgx7LANPzGDPeEoa2AjEvIBZqLXLjPBlxSTTxOVHtRTldUHRiROSsKM6ENoZlDDKvSVJ5Cm NdZFWxMZBfkv3TSOJoYVB3Wrm0QULiJATfYVReZZjn AJTeYLS6FIEgRNBfKJCuXU0IVdYzQANeNPF9PcfsDSGhOXEhwk2OVNPwXOO2CBCmEeTaHFTpIGQpLPdh COCcDHM8QXHfMTYgQGBsTK5VXjVaOZUvAHW2IViwNNVcWROana5GIGGoLTJ1FmUbCIElQAAqXSHbSToq PPMxYRC1EYXyOWZqAWGoZG2JTdLxYQGkOSm2CeGaCT NzEVEbbc2RCXAbRJZ5XNU5LsFnVJHfBVDiMTb8ikIijLDwFYh2HT6RQ2EaewHuRdLAIi4Lj835WXIoPZ CdJt2ZH1khTk2zHFHwRFYEEu9UIIa6Owq2RzggQ0E8OyHeSRGhNjUzEQDsYHB9IJxoRlT4UHX+IDxmNz HhHOR5IoG7VJO2TXPxRoY0HYCcJGRhARGyPnR3Mh0e XSANCj4+VErvyGJemBjpESOPDgR7FeXcQCfhTMFACf3G Procedure Social History Code Duration Value Status Description Data Source(s ) Alcohol intake 04/28/2020 12:00:00 AM EDT Current drinker of al cohol (finding) completed Current drinker of alcohol (finding) [facility] Smoking 04/28/2020 12:00:00 AM EDT Former smoker completed Former smoker [facility] Alcohol intake 04/22/2020 12:00:00 AM EDT Current drinker of al cohol (finding) completed Current drinker of alcohol (finding) [facility] Smoking 04/22/2020 12:00:00 AM EDT Former smoker completed Former smoker [facility] Alcohol intake 03/03/2020 12:00:00 AM EDT Current drinker of al cohol (finding) completed Current drinker of alcohol (finding) [facility] Smoking 03/03/2020 12:00:00 AM EDT Former smoker completed Former smoker [facility] Vital Signs ID Date Data Source UNK Name Value Range Interpretation Code Description Data Source(s) Body mass index (BMI) [Ratio] 36.6 kg/m2 36.6 k g/m2 [facility] ([facility], [facility]) Body height 62 [in_i] 62 [in_i] [facility] ([facility], [facility]) 5'2" Body weight 200.00 [lb_av] 200.00 [lb_av] [facility] ([facility], [facility]) Body temperature 97.5 [degF] 97.5 [degF] [facility] ([facility]) Oxygen saturation in Arterial blood by Pulse oximetry 96 % 96 % [facility] ([facility]) Respiratory rate 20 /min 20 /min [facility] ( [facility]) Heart rate 94 /min 94 /min [facility] ([facility], [facility]) Regular Diastolic blood pressure 88 mm[Hg] 88 mm[Hg] [facility]) Systolic blood pressure 117 mm[Hg] 117 mm[Hg] M [facility] ([facility], [facility]) ID Date Data Source [id number] 07/10/2020 10:54:45 AM [facility] Value Range Interpretation Code Description Data Source(s) WEIGHT RECORDED 98 KG 98 KG [facility]ital Height 157.48 CM 157.48 CM [facility] status [Interpretation] - Reported N [facility] ID Date Data Source [id number] 09/22/2020 07:29:09 AM [facility] Name Value Range Interpretation Code Description Data Source(s) WEIGHT RECORDED 221 lb 221 lb [facility] Body height Measured 62 in 62 in [facility] WEIGHT RECORDED 220 lb 220 lb [facility] Body height Measured 62 in 62 in [facility] ID Date Data Source [id number] 03/11/2020 12:39:55 PM [facility] Name Value Range Interpretation Code Description Data Source(s) WEIGHT RECORDED 220 lb 220 lb [facility] Body height Measured 62 in 62 in [facility] Patient Treatment Plan of Care Planned Activity Planned Date Details Description Data Source (s) Omeprazole 20 MG Delayed Release Oral Capsule 02/17/2020 12:00:00 A [facility] atorvastatin 20 MG Oral Tablet 01/14/2020 12:00:00 AM [facility] Hydrochlorothiazide 12.5 MG / Losartan Potassium 50 MG Oral Tablet 11/29/2019 12:00:[address] [facility] [email or web address]
[2020-11-11 18:57] LABS: HEMATOCRIT 41.5 % (36.0-47.0); HEMOGLOBIN 13.8 g/dl (12.0-15.5); LYMPH # 1.1 10^3/uL (1.5-5.0); LYMPH % 12.6 % (24.0-44.0); MEAN CORPUSCULAR HEMOGLOBIN 28.7 pg (27.0-33.0); MEAN CORPUSCULAR HGB CONC 33.3 g/dl (32.0-36.5); MEAN CORPUSCULAR VOLUME 86.3 fl (80.0-96.0); MONO # 0.5 10^3/uL (0.0-0.8); MONO % 6.4 % (0.0-5.0); NEUTROPHILS # 6.9 10^3/uL (1.5-8.5); NEUTROPHILS % 80.5 % (36.0-66.0); PLATELET COUNT, AUTOMATED 227 10^3/uL (150-450); RED BLOOD COUNT 4.81 10^6/uL (4.00-5.40); WHITE BLOOD COUNT 8.5 10^3/uL (4.0-10.0)
--- NOTE | 2020-11-11 19:06 | REP ---
INDICATION: Coronavirus workup. COMPARISON: 06/16/2014. TECHNIQUE: SINGLE PORTABLE AP VIEW OF THE CHEST WAS PERFORMED. FINDINGS: There is infiltrate in the left lung base. The right lung appears clear. The heart does not appear to be significantly enlarged. There is a moderate-sized hiatal hernia. There is curvature of the thoracic spine again noted. IMPRESSION: Infiltrate left lung base. <Electronically signed by Melvin Coffman > 11/11/20 [id number]
[2020-11-11 19:21] LABS: ALBUMIN 3.1 GM/DL (3.2-5.2); ALT/SGPT 61 U/L (12-78); BILIRUBIN,TOTAL 0.8 MG/DL (0.2-1.0); BLOOD UREA NITROGEN 13 MG/DL (7-18); C REACTIVE PROTEIN QUANTITATIV 7.64 MG/DL (0.00-0.30); CARBON DIOXIDE LEVEL 33 MEQ/L (21-32); CHLORIDE LEVEL 92 MEQ/L (98-107); CREATININE FOR GFR 0.74 MG/DL (0.55-1.30); FERRITIN 1359 NG/ML (8-252); GLOMERULAR FILTRATION RATE > 60.0 (>51); GLUCOSE, FASTING 178 MG/DL (70-100); LDH LACTATE DEHYDROGENASE 294 U/L (84-246); SODIUM LEVEL 132 MEQ/L (136-145); TOTAL PROTEIN 6.6 GM/DL (6.4-8.2); TROPONIN I < 0.02 NG/ML (< 0.10)
[2020-11-11] MEDS ORDERED: LOSA50TA5 PO (20:17)
[2020-11-11] MEDS: HumaLOG INSULIN (NovoLOG) PER UNIT SC SCH (21:00)
[2020-11-11] MEDS: dexameTHASONE 4 MG/ML 1ML VIAL (J1100 PER 1MG) IV SCH (21:00)
[2020-11-11] MEDS: OMEPRAZOLE 20 MG CAP PO SCH (21:00)
[2020-11-11] MEDS ORDERED: GLUCOSE 4GM CHEW TABLET PO PRN (22:00)
[2020-11-11] MEDS ORDERED: LOSARTAN 50MG TABLET PO ONE (22:00)
[2020-11-11] MEDS: ENOXAPARIN 40MG/0.4ML SYRINGE (J1650 PER 10MG) SC SCH (22:00)
[2020-11-11] MEDS ORDERED: GLUCAGON INJ 1MG VIAL SC PRN (22:00)
[2020-11-11] MEDS ORDERED: hydroCHLOROthiazide 12.5 MG CAPSULE PO ONE (22:00)
[2020-11-11] MEDS ORDERED: POTASSIUM CHLORIDE 10 MEQ SR TABLET PO ONE (22:00)
[2020-11-11] MEDS ORDERED: DEXTROSE 50% 50 ML SYRINGE IV PRN (22:00)
[2020-11-11] MEDS: cefTRIAXone SOD 1 GM in D5W MINI-BAG PLUS 50 ML IV SCH (22:00)
--- NOTE | 2020-11-11 22:03 | HPEPDOC ---
[facility] Medical History & Physical Date of Admission Nov 11, 2020 Date of Service: Nov 11, 2020 History and Physical CHIEF COMPLAINT: Shortness of breath HISTORY OF PRESENT ILLNESS: 60-year-old female history of hypertension diabetes and hyperlipidemia with known Covid 19 infection since November 04 (onset of symptoms October) presents to the hospital with progressive shortness of breath found to have a left lower lobe pneumonia and oxygen saturation in the 80s requiring supplemental oxygen. Patient tells me that over the past few days she's been having progressively increased cough resulting in chest pain associated with coughing as well as a fever at home but no sputum production this has progressed and she become increasingly weaker prompting her to present to the hospital. She tells me she's feeling better with the supplemental oxygen and shortness of breath has improved but she still feels weak. She denies current chest pain. PAST MEDICAL/SURGICAL HISTORY: Diabetes on metformin Hypertension on losartan and hydrochlorothiazide Hyperlipidemia Cholecystectomy 30 years ago 2 C-sections Trigger finger release left hand May 2020 SOCIAL HISTORY: Drinks alcohol socially only Denies tobacco use Denies illicit drug use FAMILY HISTORY: Dad has diabetes and coronary artery disease and dementia Mother has dementia Brother has coronary artery disease ALLERGIES: Please see below. REVIEW OF SYSTEMS: 10 point review of systems complete all negative otherwise stated in HPI HOME MEDICATIONS: Please see below. PHYSICAL EXAMINATION: Constitutional: Awake and alert, in no apparent distress ENT: Sclera are clear. Mucosa is moist. Respiratory: Lungs coarse left lower breath sounds diminished breath sounds bilaterally. No respiratory distress. On 2 L of oxygen by nasal cannula Cardiovascular: RRR S1 and S2 are normal, no murmur Gastrointestinal: Abdomen is soft, non distended, non tender, BS present. Musculoskeletal: No lower extremity edema. Neurologic: No focal neurological deficit. Mental Status: A&O x3, normal affect Skin: Warm, dry LABORATORY DATA: See below. IMAGING: See chart. Chest x-ray demonstrates a left lower lobe pneumonia MICROBIOLOGY: Please see below. ASSESSMENT/PLAN 60-year-old female history of hypertension diabetes and hyperlipidemia with Covid 19 infection presents to the hospital with progressive shortness of breath found to have a left lower lobe pneumonia and oxygen saturation in the 80s requiring supplemental oxygen. Patient admitted for medical management. # Shortness of breath 2/2 Covid 19 infection with superimposed LLL PNA: Has multiple risk factors for poor outcomes with Covid 19 infection such as obesity, hypertension and diabetes. Initial inflammatory markers elevated. Trend inflammatory markers. IV Decadron daily. Discuss in AM with pulm if she should receive rimdasivir. Lovenox. O2 target 90% or better. PT/OT. # Hypokalemia: 3.0 on admission Replace and monitor # Hypertension: Continue home meds losartan and hydrochlorothiazide. Monitor and titrate # DM: Hold home metformin. ISS. Frequent Accu-Cheks. Hypoglycemic precautions. # DVT prophylaxis: Lovenox, COVID prophylactic dose A [facility] Hospitalist Vital Signs Vital Signs Date Time Temp Pulse Resp B/P (MAP) Pulse Ox O2 Delivery O2 Flow Rate FiO2 11/11/20 19:40 100.2 11/11/20 19:01 96 Nasal Cannula 2.0 11/11/20 18:52 11/11/20 18:46 20 11/11/20 17:02 107 Laboratory Data Labs 24H Laboratory Tests 2 11/11/20 18:31: Immature Granulocyte % (Auto) 0.5, Neutrophils (%) (Auto) 80.5H, Lymphocytes (%) (Auto) 12.6L, Monocytes (%) (Auto) 6.4H, Eosinophils (%) (Auto) 0.0, Basophils (%) (Auto) 0.0, Neutrophils # (Auto) 6.9, Lymphocytes # (Auto) 1.1L, Monocytes # (Auto) 0.5, Eosinophils # (Auto) 0.0, Basophils # (Auto) 0.0, Nucleated Red Blood Cells % (auto) 0.0, D-Dimer, Quantitative 572.75H, Anion Gap 7L, Glomerular Filtration Rate > 60.0, Lactic Acid Level 2.0, Calcium Level 9.0, Ferritin 1359H, Total Bilirubin 0.8, Aspartate Amino Transf (AST/SGOT) 45H, Alanine Aminotransferase (ALT/SGPT) 61, Alkaline Phosphatase 95, Lactate Dehydrogenase 294H, Troponin I < 0.02, C-Reactive Protein, Quantitative 7.64H, Total Protein 6.6, Albumin 3.1L, Albumin/Globulin Ratio 0.9L CBC/BMP Laboratory Tests 11/11/20 18:31 Home Medications Scheduled Atorvastatin Calcium (Atorvastatin Calcium) 20 Mg Tab, 20 MG PO DAILY Losartan/Hydrochlorothiazide (Losartan-Hctz 50-12.5 mg Tab) 1 Each Tablet, 1 TAB PO DAILY Metformin HCl (Metformin HCl ER) 750 Mg Tab.er.24h, 750 MG PO QPM Omeprazole (Omeprazole) 20 Mg Cap, 20 MG PO BID Allergies Coded Allergies: No Known Allergies (Unverified , 04/02/18) A-FIB/CHADSVASC A-FIB History Current/History of A-Fib/PAF?: No ZINA CELAYA MD Nov 11, 2020 22:03
--- OUTSIDE RECORDS SUMMARY | 2020-11-11 22:29 | CCD ---
Author Author [facility] Organization [facility] Address Unknown Phone Unavailable Care Team Providers Care Disposition Clerk Name Role Phone DRAZEK, I RAMIRO PA [...] IVANA, Louis MARTINEZ MD Unavailable Unavailable IVANA, Loius MARTINEZ MD Unavailable Unavailable IVANA, Louis MARTINEZ [...] IVANA, Louis MARTINEZ MD Unavailable Unavailable IVANA, Luois MARTINEZ MD Unavailable Unavailable IVANA, B JUAN [...] is protected by Article 27-F of the [facility] Public Health law. If you continue you may have access to information: Regarding HIV / AIDS; Provided by facilities licensed or operated by the [facility] Office of Mental Health; or Provided by the [facility] Office for People With Developmental Disabilities. If such information is present, then the following [facility] mandated warning applies: This information [...] law may result in a fine or snf sentence or both. A general authorization for the release of medical or other information is NOT sufficient authorization for further disc losure. 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 Family History Family Member Name Family Member Gender Family Member Status Date o f Status Description Data Source(s) Unknown Female Problem [facility] ([facility]) Unknown Unknown Problem MEDENT ([facility], [facility]) Encounters Encounter Providers Location Date Indications Data Source(s ) Outpatient Attender: GIDEON hawkins 11/04/2020 01:00:00 PM EST [facility]ENT ([facility], [facility]) Outpatient Attender: COLLIN MCFARLAND 07/30/2020 12:00:00 [facility] Outpatient Referrer: COLLIN MCFARLAND 07/20/2020 12:00:00 A M [facility] Outpatient Attender: RAMIRO Carrasco nder: JOYCE ARREGUIN MDAdmitter: RAMIRO SEAYConsultant: JOYCE ARREGUIN MDConsultant: RAMIRO SEAY [facility] 07/05/2020 08:05:00 AM EDT - 07/05/2020 08:54:00 AM EDT [facility] Patient discharged. Outpatient Attender: JUAN HEATH MD 05/04/2020 12:00:[address] [facility] Outpatient Attender: COLLIN MCFARLANDReferrer: COLLIN MAYS [id number] 04/27/2020 12:00:[address] [facility] Outpatient Referrer: COLLIN MCFARLAND 04/21/2020 12:0 0:00 AM EDT Impingement syndrome of left [facility] Impingement syndrome of left shoulder Outpatient Attender: COLLIN MCFARLAND [id number] 04/20/2020 12:0 0:00 AM EDT Impingement syndrome of left [facility] Impingement syndrome of left shoulder Outpatient Attender: DEFAULT / GENE ALY / UNKNOWN PROVIDER ALIASES Attender: LIZZETH SOTELOReferrer: JUAN HEATH MD [id number] 12:00:00 AM EDT - 04/19/2020 12:00:00 AM EDT [facility] Outpatient Attender: JUAN HEATH MD [id number] 03/02/20 20 12:00:00 AM EDT - 03/02/2020 03:47:42 PM EDT Trigger finger, left middle finger [facility] Trigger finger, left middle finger Outpatient Attender: COLLIN MCFARLANDReferrer: JUAN HEATH MD [id number] 03/02/2020 12:00:00 AM EDT Pain in left [facility] Pain in left shoulder Outpatient Referrer: COLLIN MCFARLAND 03/02/2020 12:0 0:00 AM EDT Pain in left [facility] Pain in left shoulder OFFICE OUTPATIENT NEW 30 MINUTES Attender: RAMIRO POLANCO Physic al Therapy 01/02/2020 10:30:00 AM EST MEDENT ([facility]) Functional Status Immunizations Vaccine Date Status Description Data Source(s) INFLUENZA VIRUS VACCINE QUADRIVAL [id number](6 MOS AND UP)/PF 08/04/2020 12:00:00 AM EDT completed [facility] Medications Medication Brand Name Start Date Product Form Dose Route Admi nistrative Instructions Pharmacy Instructions Status Indications Reaction Description Data Source(s) 90 mcg/actuation 11/10/2020 12:00:00 AM EST HFA aerosol inha ler 8 INHAKE 2 PUFFS BY MOUTH EVERY 4 HOURS NEEDED INHAKE 2 PUFFS BY MOUTH EVERY 4 HOURS NEEDED SOLD: 11/10/2020 [facility] atorvastatin 20 MG Oral Tablet ATORVASTATIN CALCIUM 11/03/2020 1 2:00:00 AM EST tablet 90 TAKE ONE TABLET BY MOUTH EVERY D AY TAKE ONE TABLET BY MOUTH EVERY DAY SOLD: 11/03/2020 [facility] 20 mg 08/28/2020 12:00:00 AM EDT capsule,delayed release (DR/EC) 180 TAKE ONE CAPSULE BY MOUTH TWICE A DAY TAKE ONE CAPSULE BY MOUTH TWICE A DAY SOLD: 08/29/2020 [facility] Hydrochlorothiazide 12.5 MG / Losartan Potassium 50 MG Oral Tablet 50-12.5 mg LOSARTAN POTASSIUM/HYDROCHLOROTHIAZIDE 08/28/2020 12:00:00 AM EDT tablet 9 0 TAKE ONE TABLET BY MOUTH EVERY DAY TAKE ONE TABLET BY MOUTH EVERY DAY SOLD: 08/29/2020 [facility] 24 HR Metformin hydrochloride 750 MG Extended Release Oral T ablet METFORMIN HCL 08/04/2020 12:00:00 AM EDT tablet extended release 24 hr 30 TAKE ONE TABLET BY MOUTH EVERY DAY IN THE EVENING WITH FOOD TAKE ONE TABLET BY MOUTH EVERY DAY IN THE EVENING WITH FOOD SOLD: 09/30/2020 [facility] 24 HR Metformin hydrochloride 750 MG Extended Release Oral T ablet METFORMIN HCL 08/04/2020 12:00:00 AM EDT tablet extended release 24 hr 30 TAKE ONE TABLET BY MOUTH EVERY DAY IN THE EVENING WITH FOOD TAKE ONE TABLET BY MOUTH EVERY DAY IN THE EVENING WITH FOOD SOLD: 08/04/2020 [facility] 24 HR Metformin hydrochloride 750 MG Extended Release Oral T ablet METFORMIN HCL 08/04/2020 12:00:00 AM EDT tablet extended release 24 hr 30 TAKE ONE TABLET BY MOUTH EVERY DAY IN THE EVENING WITH FOOD TAKE ONE TABLET BY MOUTH EVERY DAY IN THE EVENING WITH FOOD SOLD: 10/30/2020 [facility] 24 HR Metformin hydrochloride 750 MG Extended Release Oral T ablet METFORMIN HCL 08/04/2020 12:00:00 AM EDT tablet extended release 24 hr 30 TAKE ONE TABLET BY MOUTH EVERY DAY IN THE EVENING WITH FOOD TAKE ONE TABLET BY MOUTH EVERY DAY IN THE EVENING WITH FOOD SOLD: 08/29/2020 [facility] BLOOD SUGAR DIAGNOSTIC 07/15/2020 12:00:00 AM EDT [...] 20 mg by mouth Two Times Daily [facility] 800 mg 01/15/2020 12:00:00 AM EDT tablet 20 TAKE ONE TABLET BY MOUTH THREE TIMES A DAY TAKE ONE TABLET BY MOUTH THREE TIMES A DAY SOLD: 01/15/2020 [facility] atorvastatin 20 MG Oral Tablet ATORVASTATIN [...] Oral active Take 20 mg by mouth [facility] 20 mg 11/29/2019 12:00:00 AM [...] active Take 1 tablet by mouth daily [facility] al 50-12.5 mg 08/15/2019 12:00:00 AM EDT tablet 90 TAKE ONE TABLET BY MOUTH EVERY DAY TAKE ONE TABLET BY MOUTH EVERY DAY SOLD: 11/30/2019 [facility] Insurance Providers Payer name Policy type / Coverage type Policy ID Covered alliance party ID Covered alliance party's relationship to high Policy High Plan Information [facility] [id number] [facility] [id number] EMPIRE PLAN [facility] [id number] Spouse [id number] EMPIRE PLAN [id number] Spouse [id number] EMPIRE PLAN [facility] [id number] Spouse [id number] [facility] [id number] SP [id number] [facility] Maintenance Organization (HMO) [id number] Family Dependent [id number] [facility] Commercial [id number] Self [id number] [facility] EMPIRE PLAN [id number] Spouse [id number] [facility] O [id number] P [id number] [employer] P [id number] S [id number] [employer] EMPIRE REBA DIV [id number] Problems, Conditions, and Diagnoses Code Display Name Description Problem Type Effective Dates Data Source(s) 59093502 Type 2 diabetes mellitus Type 2 diabetes mellitus Prob beryl 11/04/2020 12:00:00 AM EST MEDENT ([facility], [facility]) [id number] Pure hypercholesterolemia Pure hypercholesterolemia Pr oblem 01/02/2020 12:00:00 AM EST MEDENT ([facility]) [id number] Essential hypertension Essential hypertension Problem 01/02/2020 12:00:00 AM EST MEDENT ([facility]) M75.42 Impingement syndrome of left shoulder Im pingement syndrome of left shoulder Diagnosis 04/21/2020 11:06:30 AM EDT [facility] M25.512 Pain in left shoulder Pain in left shoulder Diagnosis 03/02/2020 02:08:[address] [facility] M65.332 Trigger finger, left middle finger Trigger finge r, left middle finger Diagnosis 03/02/2020 01:12:[address] [facility] Surgeries/Procedures Procedure Description Date Indications Data Source(s) SURGERY CASE REQUEST OUTSIDE FACILITY ONLY SURGERY CA SE REQUEST OUTSIDE FACILITY ONLY Routine 04/28/2020 8:06 AM EDT Impingement syndrome of left shoulder Labral tear of shoulder, left, subsequent encounter 12:06:49 PM EDT Labral tear of shoulder, left, subsequen t encounterImpingement syndrome of left shoulder [facility] Labral tear of shoulder, left, subsequen t encounter Impingement syndrome of left shoulder Results ID Date Data Source [id number] 11/04/2020 12:00:00 AM EST [facility] Name Value Range Interpretation Code Description Data Anat rce(s) Supporting Document(s) SARS-CoV2 [facility] by [facility] and reported by [facility]. ID Date Data Source [id number] 07/07/2020 09:45:04 AM EDT [facility] Note status: FINAL (SIGNED)Patient name: JENNI PALMERate of : 1960Visit ID: [id number] record number: [id number]: 60YSex: FemaleRoom [facility] 2Date of service: 07/06/2020 13:52Creation date: 07/06/2020 [...] rce(s) Supporting Document(s) ID Date Data Source [id number] 07/05/2020 08:39:00 AM EDT [facility] Name Value Range Interpretation Code Description Data Anat rce(s) Supporting Document(s) GLUCOSE BedSide 293 mg/dL 70-100 [id number] MeterDoctor No tified ID Date Data Source [id number] 07/07/2020 08:35:00 AM EDT [facility] CULTURE OBSERVATIONS Few colonies of mi xed growth consistent with skin semaj present Name Value Range Interpretation Code Description Data Anat rce(s) Supporting Document(s) ID Date Data Source [id number] 07/05/2020 11:50:00 AM EDT [facility] Name Value Range Interpretation Code Description Data Anat rce(s) Supporting Document(s) COLOR YELLOW [facility] APPEARANCE HAZY CLEAR ! [facility] SPECIFIC GRAVITY 1.020 1.000-1.030 [facility] pH 5.0 5.0-8.0 [facility] LEUKOCYTES NEGATIVE NEGATIVE [facility] NITRATE NEGATIVE NEGATIVE [facility] PROTEIN NEGATIVE mg/dL NEGATIVE [facility] GLUCOSE 1000 mg/dL NORMAL ! [facility] KETONE NEGATIVE mg/dL NEGATIVE [facility] UROBILINOGEN NORMAL mg/dL NORMAL [facility] BILIRUBIN NEGATIVE mg/dL NEGATIVE [facility] HEMOGLOBIN NEGATIVE NEGATIVE [facility] ID Date Data Source [id number] 04/28/2020 08:07:43 AM EDT [facility] Name Value Range Interpretation Code Description Data Anat rce(s) Supporting Document(s) Progress Note [facility] OCHSPw2wGxICUqAu79/CTXeeWYKfw1FnLTbeKNl0JNpsIMYnS9FaUHV1vM9cOON0ECwCTuNyRkMrIyGb lbm [file] MYpvFUw4FFaoUomoXCS5Su4rBZXGRb3+HAoznCJujMhzCLHOUhZwDqf3JOxfJIKONt7S ID Date Data Source [id number] 04/22/2020 07:57:32 AM EDT [facility] Name Value Range Interpretation Code Description Data Anat rce(s) Supporting Document(s) Progress Note [facility] CNDFQs0gIsKGJzPj54/OHRiwNLUcs4NmIRqqHLx6BPrsJHKlE8QlGYK4tO2lIRH7HBwOCjHaOmEbUyB8 lbm [file] zeg9GmK8VVaE9kNxyOt2x2nTB/bung dropper/GyFDUgwZfXwk42N8ZBWscYvsbs3BNdw5upS2YmoLJOwUrerzkv [file] ICAgICAgICAgICAgICAgICAgICAgICAgICAgICAgICAgICAgICAgICAgICAgICAgICAgICAgICAgICAg ICAgICAgDQogICAgICAgICAgICAgICAgICAgICAgIC AgICAgICAgICAgICAgICAgICAgICAgICAgICAgICAgICAgICAgICAgICAgICAgICAgICAgICAgICAgIC AgICAgICAgICAgICAgICAgDQogICAgICAgICAgICAgICAgICAgICAgICAgICAgICAgICAgICAgICAgIC AgICAgICAgICAgICAgICAgICAgICAgICAgICAgICAg ICAgICAgICAgICAgICAgICAgICAgICAgICAgDQogICAgICAgICAgICAgICAgICAgICAgICAgICAgICAg ICAgICAgICAgICAgICAgICAgICAgICAgICAgICAgICAgICAgICAgICAgICAgICAgICAgICAgICAgICAg ICAgICAgICAgDQogICAgICAgICAgICAgICAgICAgIC AgICAgICAgICAgICAgICAgICAgICAgICAgICAgICAgICAgICAgICAgICAgICAgICAgICAgICAgICAgIC AgICAgICAgICAgICAgICAgICAgDQogICAgICAgICAgICAgICAgICAgICAgICAgICAgICAgICAgICAgIC AgICAgICAgICAgICAgICAgICAgICAgICAgICAgICAg ICAgICAgICAgICAgICAgICAgICAgICAgICAgICAgDQogICAgICAgICAgICAgICAgICAgICAgICAgICAg ICAgICAgICAgICAgICAgICAgICAgICAgICAgICAgICAgICAgICAgICAgICAgICAgICAgICAgICAgICAg ICAgICAgICAgICAgDQogICAgICAgICAgICAgICAgIC AgICAgICAgICAgICAgICAgICAgICAgICAgICAgICAgICAgICAgICAgICAgICAgICAgICAgICAgICAgIC AgICAgICAgICAgICAgICAgICAgICAgDQogICAgICAgICAgICAgICAgICAgICAgICAgICAgICAgICAgIC AgICAgICAgICAgICAgICAgICAgICAgICAgICAgICAg ICAgICAgICAgICAgICAgICAgICAgICAgICAgICAgICAgDQogICAgICAgICAgICAgICAgICAgICAgICAg ICAgICAgICAgICAgICAgICAgICAgICAgICAgICAgICAgICAgICAgICAgICAgICAgICAgICAgICAgICAg SYRxFRVxDXTkXDOmEWYaAKo7P9dnYHFxPADaEB3cTW d3Jz8+JYaGDjVsROX2uoZrhB2KOG5kh7GfIAtzBSJfg5YeBWv6EW2AILYgIYgdSR5IWVucxv5SKSNvYV XgeCMMh7ktVsZlJYL2RALxQintNN9WCVPzP9vcazNhZETiCSYEYPfqESTESZkhGBXSYH3UTiWbP9ZjiR 67HQWJRy5+UXdwqaZeAwiEAcT3RRWrs3UoIOb6RF7F VGYyZilki4ZuFbohMTUKSGupLA0GANK3RPY0NEQpDo1LKVTkB272nnKwJL2NCi5JKdGmKK1xvf5MAkug OCTzOsjNIdw2REilTF2AvRFlPWyHkk1scbGrfwTVq4HspnShxIVWe8irALOvO7Bbxhn9lbEcahguMBJv SUDoDa6hPx0bTENdUYYnWaChVEQGWD5WCHSqPJDplQ GzYDExYLCXWW1FDNvaAFG6UQZrfyCkcMWvLEkmCD8IVCAselZyWsUsUFZOWLe+Jn6VMB2io5WnUUxdWJ EcEB9cto1JHQlNFoMjR3X7rDSgB4B9BUwwBu3BXHNsSCOlJnEzAAVZIPbsQF7YEK4mbzV4WN9XvYQaAE AiOQDzjXJnQRy5S21epMMhRTstSU4BUHG+Autumn+Pg0K UFWlZSScOWJvUjKaJOHBXhSaW2VmM6DIf1EkB2ZoRY86hAjtpxIfBWztJS5VBT9xBIPnJDRVST9AcTEr sS7gkrMgMwMkYWPSEvJoN76xtEEqPITzUDC0ZEYbHl6YLHHcO8DnbjInwYtuwzKqKUImKSOUFI3TBLbp tkItrFWkaShmON79aRkrDJ9VAn1SGjQvXO5glw3MbW BdNc6LPUGsEP8CIQKdRFMvTBBeOIB8NGDgRjVxBXqbRAKdPNArXUX6AFAoQWYlEO0TBtXmVQHaQPQpJB syRONpASPxnb7IXCWpBPM3TGCtVzKvQLZwKBXbGMinORThCQJcUVS2IZHaMAQhCD1FLrSrVWGbXVCfBe kaMJAxIJZkci3KOHPnLMUkVmX5EyEiYOWqGVKbNXwd PACyVJH7PsZ3OGClMHIgRB0DBgUrNPDeLXJ5GZOuIBAcLLKbhs9INAQvSOQyCON3XWPfQEKjEOVfNPpx UULeTMU9PRNiUEHoNIQhQK7OBbCnGQIbTSp6FwAbKLBxYEFgas9HXLNjMVCpJUJzZBJeUIMbOJHlDIee ASUpSRG3HXFnUUPxKIVuDA8QPfYqOBLcJMU0HhEnLQ InZJSdcy1YXWKnDJSgMMg1RiWiDSYhYQZdODeqYSIiZLIbTVPzXPImZCHpBW8NSuTjBDFeKRMiYQXtUM ZxDAWqjd2KLMDgHHD1JMm0RFUkAIGcICXwNCenUROkIBJdWVM1UAOuRHSwHG3VKwHgFWQnCWI4XDCbEJ SsVXSvil8HWNQoKPB8AOs8XkQvCPCzSMIyEUaxMUWm LMLvZIFzMACfTQZiST1DFbEtDUJhGIXkBTcrICIyCGMsfp0ESXKrZKP0NvE6MrAmPIXxHOFhOJwuXGIx MNEdKumuVFNtTHGzDJ8BMmImODSyFGDxJvIgRVWyBPGbpu9VYHQvBOD5TMBjDWKmZHPmGKBvAQdeBACu YXK1QpY5WBCgEMCrUM6RXuVhIQdkAZTRHhv5VTcdR4 a9PUWtGU6XH6Ckd9BcAfyxIVCCYBtsWC1grgQqDVAtDo5IB9uCXcg0YJJ5F0KfI2PmOMS2YKGjNrS0MG npJJOdKhMzGzPyJO7jNOG0XOI9YhGwDvB2TbZcZKHfUmo3MOV1KHWmGyTcEVSrVfXgRY2AUu7DAaC6OC X4lNFaJc6YCEQ3AMBVUtCxNX5EAUr= ID Date Data Source [id number] 04/21/2020 01:49:02 PM EDT [facility] MR EXTREMITY UPPER JOINT WITHOUT CONTRAS T [id number] RESULTInterpreted by:Shantel Kim MDINDICATION: Shoulder tendon and [...] rce(s) Supporting Document(s) ID Date Data Source [id number] 04/18/2020 09:54:01 AM T [facility] Name Value Range Interpretation Code Description Data Anat rce(s) Supporting Document(s) Progress Note [facility] ICASRt1cCyTJTsTz04/BTOdpGNEcl0WiDJjbWCd0XEirCIJeG5VwEOL1aV9uYYK7IZlQHtOpHiVnBwGn lbm [file] ID Date Data Source [id number] 04/19/2020 07:35:58 AM EDT [facility] Service Cmnt XXX-Imp : NoneMicroorganism XXX Cult : 2019 nCoV Real-Time RT-PCR: NOT DETECTEDTest performed using the [employer] COVID-19 MDx Assay. This test is only for use under the Food and Drug Administration's Emergency Use Authorization.Additional information is available on the following FDA websites for health care providers and patients. https://www.fda.gov/media/738950/download , https://www .fda.gov/media/409373/download Name Value Range Interpretation Code Description Data Anat rce(s) Supporting Document(s) ID Date Data Source [id number] 04/18/2020 09:53:00 AM [facility] Service Cmnt XXX-Imp : NoneMicroorganism XXX Cult : 2019 nCoV Real-Time RT-PCR: NOT DETECTEDTest performed using the [employer] COVID-19 MDx Assay. This test is only for use under the Food and Drug Administration's Emergency Use Authorization.Additional information is available on the following FDA websites for health care providers and patients. https://www.fda.gov/media/683753/download , https://www .Redeem&Get.gov/SeeMedia/100212/download Name Value Range Interpretation Code Description Data Anat rce(s) Supporting Document(s) Microorganism identified in Unspecified specimen by [facility] This lab was ordered by [facility] and reported by [facility]. ID Date Data Source [id number] 03/08/2020 09:32:58 PM [facility] Name Value Range Interpretation Code Description Data Anat rce(s) Supporting Document(s) Progress Note [facility] XFCVVv7fWgFWPjBy54/LITntDPXje5LeGEwrIBl5BAzpBYVsV0GfUWL6fP9sOKY6JWwXPtXwUpYeXITg [facility] [file] UzSdZbXGL7UKSsCyPhKN8MAt8FCdK1LXV7wRPuTs4YCjGtYRORPjXhHY7VXXv= ID Date Data Source [id number] 03/03/2020 03:23:32 PM EDT [facility] XR SHOULDER COMPLETE [id number] RESULTIn terpreted by:Irvin Herndon MDLe shoulderINDICATION: PainFINDINGS: There are no prior films [...] rce(s) Supporting Document(s) ID Date Data Source [id number] 03/03/2020 06:07:30 AM EDT [facility] Name Value Range Interpretation Code Description Data Anat rce(s) Supporting Document(s) Progress Note [facility] QQECNa3fWwHIMxUw38/TJGsiJSSva9QhDJfmHKr1NWnrOHPtA8GmHDZ9uB8yVGJ4BXqPLdLkBoUbKES4 lbm [file] kD+XI0Op66RBUuPi3qmDccMW563GEhdJDtflD7 [file] ANTONIETA+LDjiNZfgqVk3mDUeSDArQy4WAESaAGDkIXQvNZFlHZYjVLKtSYGtSWRvMZSyUEMkCROdAZLdRKSk ICAgICAgICAgICAgICAgICAgICAgICAgICAgICAgICAgICAgICAgICAgICAgICAgICAgICAgICAgICAg ZD4FBTJgVATpCDDbZJAiZAUzSPTbAVWqNIGuRMFoFH AgICAgICAgICAgICAgICAgICAgICAgICAgICAgICAgICAgICAgICAgICAgICAgICAgICAgICAgICAgIC TpCDCzBTKzVOWhMN3SFRFrKHCqDTBmSCFsAIQjUROfKOTeHMCsLFZhBOZqUFYqIVGuMOUgBVAsWRBsQR AgICAgICAgICAgICAgICAgICAgICAgICAgICAgICAg IGTqUYVmJODkDUVkYBZxOSSnEFAgHI3NSOUzPLTnMTFaQIMtMKKyUQOmXDUrHKXcWJKuZAWkGSEbVKDp ICAgICAgICAgICAgICAgICAgICAgICAgICAgICAgICAgICAgICAgICAgICAgICAgICAgICAgICAgICAg BFXcSM3CAXAcASKkKGPvLZYkSXRxOCLtWCRhUFQuZX AgICAgICAgICAgICAgICAgICAgICAgICAgICAgICAgICAgICAgICAgICAgICAgICAgICAgICAgICAgIC SsZYMpHIEdJDGsWHFiJF4HFPGyMBVxORVbZXEmZSNiMAEmPKYqDUNuTIEnNCAgUQAcGOEdWSAuOTYdOB AgICAgICAgICAgICAgICAgICAgICAgICAgICAgICAg YJZjZPXaUPBdUWCnYDBtZQHjAZRtQJTpVI4GRISrMDZsMDTbENKvNFDmWFYsQOEmAGGgSVVhWWHnTTQz ICAgICAgICAgICAgICAgICAgICAgICAgICAgICAgICAgICAgICAgICAgICAgICAgICAgICAgICAgICAg IGNlVKTdJO5RXHPhXXDaGTVfZZYdLPExAQYlVYQgIP AgICAgICAgICAgICAgICAgICAgICAgICAgICAgICAgICAgICAgICAgICAgICAgICAgICAgICAgICAgIC YeCYVyVWQiXPArVSKaKZEqGG9IDMGxYNTuCFCtDOXzJQLwSKUgMATySKYmYLXxNTGvZAMaKOAtIOKyLO AgICAgICAgICAgICAgICAgICAgICAgICAgICAgICAg VAKgAIIqWPUmXXZxYXAuOFYrYWBmNLFzEFIcEX5IBZNpZTMdBDGhVIQkKMDxLQZpIEEtZCXjGHKxMVVl ICAgICAgICAgICAgICAgICAgICAgICAgICAgICAgICAgICAgICAgICAgICAgICAgICAgICAgICAgICAg TRVnHTNbRYHsXK8KKO39xRXoi0C6FMDlOA6uvnf/Pg 9TYXbqmwYeiYBnOO4XZxVcTB5bip3EQjMnKG9sjj9ZPRsLQmZiA6U2lRUbWYZbHVFGIcZtP97mCZchLw 76QLnoKYCdAbKvCPn3Rc7BMmKiP5ueOVGwVaC1UBOnNwX3SDKzOaB3TPHcCsZjDYXnWRIrXW7GEXFiW9 06nwDfMW7DWc6HUbTgYP5qdn7CAafgUUHzIfkYNvo2 WNfzJU4GwQQybWXaRZBxUHALMiJgM3bag1TzIxyoHLIAECibIT1Wl0DuzWPnMKi+Ws0ZGM0ha2KgOPsv ZLMiVN2ryr4BAHiXJnZkG1JtzBsqLIDjr2shDLGpHP7wyGCuZCI0XGfmJ4qhobqfLFPBFWgouDGfHNBk CJ3JVPA5INYdQK8oDUDwHCUySlFhCIODDF5HRKJqBV SuzEIqWFRkULXPZH0SKFglGKV7VSOrrpAgaDFvNBkcJB6HSZOwacEuExprXMENUXq+Mw1ILR7gl8HeMV hkHXBgTQ2nud9IDDgIBrCgJ7S1rZZeO5A8VZviCt1FFJMwVULdBbXpKPVFYSjtSS6TBG0nkjN7SB1HiK SoLMUiLEZznKTkMMp4N33auNNmXWoyIQ6SDAN+Autumn+ Uv9SKMFwGXQhEMLpMcAhYCRGDtJbL3LwF4MIt0IvO4EpZI40aKpyzzHdIDoqOH1WXO2nMPXuGLBRHN6A vPFblG2ubaJsLYHyQFYEVwMhU46szGDgRUZsUSF8NFKpPa5DYUKxA5XqxoDiiOdrxqNeFCGhMGWZID5P RGulsxJmxGDdiWiaJQ54xGtrCP8GLf4KAzOeTH1hsh 0MfIGzKc0YPHWnDK4CSUGuMADmLILvHTI5EKMfAcCwNSegPQXdJPNpPXD6FIXkDMAuMF2BLeRdJLStYJ AhNIDvAWHsHEHmel8VESNjBQO8Fmt0JFMiOPPsXQJjTJfuMRCnHRBuQHL6WKOkNIAwMC2PNyIsFRDvOL RyVtLeKBFhVRJqym0CSQVgKIUqSrD8JMVmVKJuSDRr PZgjOLRxQNX0JGW2OVLiQVPrEG1WUfXgGGWhGEVqZxVvOIBsNIBwpx8XEBRoVHPnUOXoGaGbJBImDCSr HZujCMXuWFJ7VOG0QTEtHXLuUU4JReRwXTVmZTG1RuzbUSMoBLNwxd8BBFCiJEReFGH7BRZmNIFbZGLh ITnwIXMrQPVeFQP9UIQoJTEqNM6FHnFwJSFbFTXnUK FiLROlHCZonf6HTSAnZKTmPgXrKWMzNVEhILOjLQljPKKzEGFxTIeqOYUyCSWiXI4HFiOoSHRiAPB9HD ZhUQMnTPSjfz3AHFUxPCDeMqv4JyYqTMYmBMMyKOvrRJJkCAWgZRlmUUTnWLYdXP6EEkUzTSQyCCO5Sq MnQGChVFDhof2WLMXbXXC8Lqu9SXAoYVBaOAUcPWbg FRGvAEB9FKIyPRXyRTNuPD3DRpQpEHTlXMJ4RavhBBEgIGXars9FBYBsAAY2QJIeCrVmBNXmHTYxWQbg ROKyIUZ2QTOsBLTvWZNoXW4JQnXyFNLwCRP0HXahVRVtMJLznv5JZLCpMSU3FjNwETXrMYMiUJOyENqe XEMfZMZ5YNKmECJbCIQxCM3KSqBfNCEoCEb5BtFfUP UtFRSsvp2LCTFrWEV9LHN8XvEsXGDrDPPbNFd0zxMvwGViTOv5WW8PC1RurjVxVkEBDp8Mi360WJOlYR FuDe2ZI4rtIb2fMHJdPLLADa3FJDk9Sem5KscmF3Z7YrBjITVkJfHxDUHsQTL3UPvkXyA4NGL+IDxmNz IeAXD7LdT7UPI9DZWmQcP7DQNkHBFaUUBdLgD5Dh0y XSANCj4+UCmtkYXdsQyeENPKNkX9QlJjTDtbJUZZRf4C Procedure Social History Code Duration Value Status Description Data Source(s ) Alcohol intake 04/28/2020 12:00:00 AM EDT Current drinker of al cohol (finding) completed Current drinker of alcohol (finding) [facility] Smoking 04/28/2020 12:00:00 AM EDT Former smoker completed Former smoker [facility] Alcohol intake 04/22/2020 12:00:00 AM EDT Current drinker of al cohol (finding) completed Current drinker of alcohol (finding) [facility] Smoking 04/22/2020 12:00:00 AM EDT Former smoker completed Former smoker [facility] Alcohol intake 03/03/2020 12:00:00 AM EDT Current drinker of al cohol (finding) completed Current drinker of alcohol (finding) [facility] Smoking 03/03/2020 12:00:00 AM EDT Former smoker completed Former smoker [facility] Vital Signs ID Date Data Source UNK Name Value Range Interpretation Code Description Data Source(s) Body mass index (BMI) [Ratio] 36.6 kg/m2 36.6 k g/m2 [facility] ([facility], [facility]) Body height 62 [in_i] 62 [in_i] [facility] ([facility]) 5'2" Body weight 200.00 [lb_av] 200.00 [lb_av] [facility] ([facility], [facility]) Body temperature 97.5 [degF] 97.5 [degF] [facility] ([facility]) Oxygen saturation in Arterial blood by Pulse oximetry 96 % 96 % [facility] ([facility]) Respiratory rate 20 /min 20 /min [facility] ( [facility]) Heart rate 94 /min 94 /min [facility] ([facility]) Regular Diastolic blood pressure 88 mm[Hg] 88 mm[Hg] [facility] ([facility]) Systolic blood pressure 117 mm[Hg] 117 mm[Hg] [facility], [facility]) ID Date Data Source [id number] 07/10/2020 10:54:45 AM EDT [facility] al Name Value Range Interpretation Code Description Data Source(s) WEIGHT RECORDED 98 KG [facility] 157.48 CM 157.48 CM [facility] status [Interpretation] - Reported [facility] ID Date Data Source [id number] 09/22/2020 07:29:09 AM [facility] Name Value Range Interpretation Code Description Data Source(s) WEIGHT RECORDED 221 lb 221 lb [facility] Body height Measured 62 in 62 in [facility] WEIGHT RECORDED 220 lb 220 lb [facility] Body height Measured 62 in 62 in [facility] ID Date Data Source [id number] 03/11/2020 12:39:55 PM [facility] Name Value Range Interpretation Code Description Data Source(s) WEIGHT RECORDED 220 lb 220 lb [facility] Body height Measured 62 in 62 in [facility] Patient Treatment Plan of Care Planned Activity Planned Date Details Description Data Source (s) Omeprazole 20 MG Delayed Release Oral Capsule 02/17/2020 12:00:00 A M [facility] atorvastatin 20 MG Oral Tablet 01/14/2020 12:00:00 AM [facility] Hydrochlorothiazide 12.5 MG / Losartan Potassium 50 MG Oral Tablet 11/29/2019 12:00:00 AM [facility] fito
[2020-11-12] VITALS (11 sets, daily range): BP systolic 95–131; BP diastolic 40–91; O2SAT 88–94
[2020-11-12] MEDS: ACETAMINOPHEN TAB 650MG DOSE (2X325MG) PO PRN ×2 (01:15→21:07)
[2020-11-12 08:17] LABS: D-DIMER QUANT 561.33 ng/ml (<500)
[2020-11-12 08:27] LABS: BLOOD UREA NITROGEN 16 MG/DL (7-18); C REACTIVE PROTEIN QUANTITATIV 9.42 MG/DL (0.00-0.30); CARBON DIOXIDE LEVEL 31 MEQ/L (21-32); CHLORIDE LEVEL 93 MEQ/L (98-107); CREATININE FOR GFR 0.86 MG/DL (0.55-1.30); FERRITIN 1466 NG/ML (8-252); GLOMERULAR FILTRATION RATE > 60.0 (>51); GLUCOSE, FASTING 243 MG/DL (70-100); MAGNESIUM LEVEL 2.2 MG/DL (1.8-2.4); POTASSIUM SERUM 3.1 MEQ/L (3.5-5.1); SODIUM LEVEL 134 MEQ/L (136-145)
[2020-11-12] MEDS: ENOXAPARIN 40MG/0.4ML SYRINGE (J1650 PER 10MG) SC SCH ×2 (09:24→20:37)
[2020-11-12] MEDS: ATORVASTATIN 20 MG TAB PO SCH (09:24)
[2020-11-12] MEDS: OMEPRAZOLE 20 MG CAP PO SCH ×2 (09:24→20:42)
[2020-11-12] MEDS: HumaLOG INSULIN (NovoLOG) PER UNIT SC SCH ×4 (09:25→20:33)
[2020-11-12] MEDS ORDERED: POTASSIUM CHLORIDE 10 MEQ SR TABLET PO ONE ×2 (12:00→16:00)
[2020-11-12] MEDS: MAG SULF 1GM/100ML (MAG RUN) 1 GM in IV 1 EA IV SCH ×2 (12:04→12:41)
--- NOTE | 2020-11-12 14:02 | IPNPDOC ---
Text Note Date of Service The patient was seen on 11/12/20. NOTE Subjective: Patient is a 60-year-old female with a PMHx of HTN, DM2, DLP, who has been experiencing symptomatos of SOB since 11/01 and tested positive on 11/04. Patient presented to the ER with progressive shortness of breath. Upon arrival to ER, she had an x-ray completed that revealed evidence of left lower lobe pneumonia. Patient was admitted to the hospital service for further evaluation and treatment. Patient was seen and examined at the bedside. Currently patient denies any nausea, vomiting, abdominal pain, diarrhea, or urinary discomfort. She reports shortness of breath and a mild cough. Denies any chest pain. Objective: Vitals (See below) General: Sitting up in bed, appears to be comfortable, AAOx3 HEENT: NC, AT CVS: RRR, +S1S2 Lungs: Fair air entry b/l, no visual wheezing, rhonchi or rales Abdomen: Soft, nondistended and nontender Extremities: Lower extremities are without any edema, - Calf tenderness Assessment and plan: Acute hypoxic respiratory failure - likely 2/2 COVID19 pneumonia; possibly 2/2 superimposed bacterial pneumonia - Presented to ER with the physicians of breath and productive cough - Symptom onset at 11/01; COVID positive on 11/04 - Will trend inflammatory markers - CXR 11/11: Infiltrate left lung base. - c/w Ceftriaxone and Azithromycin (Day #2) - c/w Dexamethasone (Day #2) Hypokalemia - Will supplement HTN - BP well controlled - Will hold HCTZ - c/w Losartan DM2 - c/w ISS DLP - c/w Atorvastatin GERD - c/w Omeprazole DVT prophylaxis - c/w Lovenox weight-based prophylactic dosing Disposition: - Awaiting clinical improvement VS,Fishbone, I+O VS, Fishbone, I+O Laboratory Tests 11/11/20 18:31 11/12/20 06:27 Vital Signs Date Time Temp Pulse Resp B/P (MAP) Pulse Ox O2 Delivery O2 Flow Rate FiO2 11/12/20 12:00 91 Nasal Cannula 3.0 11/12/20 08:02 97.3 80 18 131/91 (104) I&O- Last 24 Hours up to 6 AM 11/12/20 05:59 Intake Total 50 ml Output Total 600 ml Balance -550 ml TAYLOR,VIJESH MD Nov 12, 2020 14:02
[2020-11-12] MEDS: cefTRIAXone SOD 1 GM in D5W MINI-BAG PLUS 50 ML IV SCH (20:39)
[2020-11-12] MEDS: dexameTHASONE 4 MG/ML 1ML VIAL (J1100 PER 1MG) IV SCH (20:41)
[2020-11-12] MEDS: BENZONATATE 100 MG CAP PO SCH (21:07)
[2020-11-12] MEDS: AZITHROMYCIN INJ 500 MG, VIAL MATE ADAPTER 1 EACH in D5W 250 ML IV SCH (21:32)
[2020-11-12] MEDS ORDERED: ENOXAPARIN 40MG/0.4ML SYRINGE (J1650 PER 10MG) SC SCH (22:00)
[2020-11-13] VITALS (15 sets, daily range): BP systolic 95–122; BP diastolic 69–85; O2SAT 88–94
[2020-11-13 06:54] LABS: HEMATOCRIT 42.9 % (36.0-47.0); HEMOGLOBIN 14.1 g/dl (12.0-15.5); MEAN CORPUSCULAR HGB CONC 32.9 g/dl (32.0-36.5); MEAN CORPUSCULAR VOLUME 88.3 fl (80.0-96.0); PLATELET COUNT, AUTOMATED 358 10^3/uL (150-450); RED BLOOD COUNT 4.86 10^6/uL (4.00-5.40); WHITE BLOOD COUNT 11.1 10^3/uL (4.0-10.0)
[2020-11-13 07:23] LABS: ALBUMIN 2.9 GM/DL (3.2-5.2); ALT/SGPT 58 U/L (12-78); BILIRUBIN,TOTAL 0.7 MG/DL (0.2-1.0); BLOOD UREA NITROGEN 20 MG/DL (7-18); C REACTIVE PROTEIN QUANTITATIV 5.42 MG/DL (0.00-0.30); CALCIUM LEVEL 8.7 MG/DL (8.5-10.1); CARBON DIOXIDE LEVEL 31 MEQ/L (21-32); CHLORIDE LEVEL 98 MEQ/L (98-107); CREATININE FOR GFR 0.89 MG/DL (0.55-1.30); FERRITIN 1254 NG/ML (8-252); GLOMERULAR FILTRATION RATE > 60.0 (>51); GLUCOSE, FASTING 261 MG/DL (70-100); LDH LACTATE DEHYDROGENASE 267 U/L (84-246); MAGNESIUM LEVEL 2.3 MG/DL (1.8-2.4); POTASSIUM SERUM 4.1 MEQ/L (3.5-5.1); SODIUM LEVEL 135 MEQ/L (136-145); TOTAL PROTEIN 6.8 GM/DL (6.4-8.2)
[2020-11-13 07:30] LABS: D-DIMER QUANT 338.52 ng/ml (<500)
[2020-11-13] MEDS: HumaLOG INSULIN (NovoLOG) PER UNIT SC SCH ×4 (07:59→22:35)
[2020-11-13] MEDS: BENZONATATE 100 MG CAP PO SCH ×3 (09:27→22:29)
[2020-11-13] MEDS: ATORVASTATIN 20 MG TAB PO SCH (09:28)
[2020-11-13] MEDS: ENOXAPARIN 40MG/0.4ML SYRINGE (J1650 PER 10MG) SC SCH ×2 (09:28→22:31)
[2020-11-13] MEDS: OMEPRAZOLE 20 MG CAP PO SCH ×2 (09:28→22:29)
--- NOTE | 2020-11-13 13:16 | IPNPDOC ---
Text Note Date of Service The patient was seen on 11/13/20. NOTE Subjective: Patient is a 60-year-old female with a PMHx of HTN, DM2, DLP, who has been experiencing symptomatos of SOB since 11/01 and tested positive on 11/04. Patient presented to the ER with progressive shortness of breath. Upon arrival to ER, she had an x-ray completed that revealed evidence of left lower lobe pneumonia. Patient was admitted to the hospital service for further evaluation and treatment. Patient was seen and examined at the bedside. Currently patient denies any nausea, vomiting, abdominal pain, diarrhea, or urinary discomfort. She reports shortness of breath and a mild cough. Denies any chest pain. Objective: Vitals (See below) General: Sitting up in bed, appears to be comfortable, AAOx3 HEENT: NC, AT CVS: +S1S2 Lungs: Air entry, again, appears to be fair bilaterally without any evidence of rhonchi, crackles or wheezing Abdomen: Abdomen remains soft without any appreciated tenderness or distention Extremities: No edema of lower extremities, - Calf tenderness Assessment and plan: Acute hypoxic respiratory failure - likely 2/2 COVID19 pneumonia; possibly 2/2 superimposed bacterial pneumonia - Presented to ER with the physicians of breath and productive cough - Symptom onset at 11/01; COVID positive on 11/04 - Inflammatory markers appear to be improving - CXR 11/11: Infiltrate left lung base. - c/w Ceftriaxone and Azithromycin (Day #3) - c/w Dexamethasone (Day #3) s/p Hypokalemia HTN - BP well controlled - Will hold HCTZ - c/w Losartan DM2 - c/w ISS DLP - c/w Atorvastatin GERD - c/w Omeprazole DVT prophylaxis - c/w Lovenox weight-based prophylactic dosing Disposition: - Awaiting clinical improvement - c/w PT VS,Fishbone, I+O VS, Fishbone, I+O Laboratory Tests 11/13/20 06:29 Vital Signs Date Time Temp Pulse Resp B/P (MAP) Pulse Ox O2 Delivery O2 Flow Rate FiO2 11/13/20 10:00 90 Nasal Cannula 3.0 11/13/20 08:00 96.7 73 18 116/85 (95) I&O- Last 24 Hours up to 6 AM 11/13/20 06:00 Intake Total 1820 ml Output Total 700 ml Balance 1120 ml ANTONIO TAYLOR MD Nov 13, 2020 13:16
[2020-11-13 18:08] LABS: MYCOPLASMA PNEUMONIAE IgG <100 U/mL (0-99); MYCOPLASMA PNEUMONIAE IgM <770 U/mL (0-769)
[2020-11-13] MEDS: cefTRIAXone SOD 1 GM in D5W MINI-BAG PLUS 50 ML IV SCH (22:31)
[2020-11-13] MEDS: dexameTHASONE 4 MG/ML 1ML VIAL (J1100 PER 1MG) IV SCH (22:32)
[2020-11-14] MEDS: AZITHROMYCIN INJ 500 MG, VIAL MATE ADAPTER 1 EACH in D5W 250 ML IV SCH (00:13)
[2020-11-14 05:39] VITALS: BP 110/76
[2020-11-14 06:28] LABS: HEMATOCRIT 41.2 % (36.0-47.0); HEMOGLOBIN 13.4 g/dl (12.0-15.5); MEAN CORPUSCULAR HEMOGLOBIN 28.6 pg (27.0-33.0); MEAN CORPUSCULAR HGB CONC 32.5 g/dl (32.0-36.5); PLATELET COUNT, AUTOMATED 409 10^3/uL (150-450); RED BLOOD COUNT 4.68 10^6/uL (4.00-5.40); WHITE BLOOD COUNT 9.9 10^3/uL (4.0-10.0)
[2020-11-14 06:44] LABS: D-DIMER QUANT 420.25 ng/ml (<500)
[2020-11-14 07:07] LABS: ALBUMIN 2.8 GM/DL (3.2-5.2); ALT/SGPT 56 U/L (12-78); BILIRUBIN,TOTAL 0.6 MG/DL (0.2-1.0); BLOOD UREA NITROGEN 20 MG/DL (7-18); C REACTIVE PROTEIN QUANTITATIV 2.34 MG/DL (0.00-0.30); CALCIUM LEVEL 8.9 MG/DL (8.5-10.1); CARBON DIOXIDE LEVEL 28 MEQ/L (21-32); CHLORIDE LEVEL 97 MEQ/L (98-107); CREATININE FOR GFR 0.83 MG/DL (0.55-1.30); FERRITIN 1030 NG/ML (8-252); GLOMERULAR FILTRATION RATE > 60.0 (>51); GLUCOSE, FASTING 271 MG/DL (70-100); LDH LACTATE DEHYDROGENASE 248 U/L (84-246); MAGNESIUM LEVEL 2.1 MG/DL (1.8-2.4); POTASSIUM SERUM 3.5 MEQ/L (3.5-5.1); SODIUM LEVEL 135 MEQ/L (136-145); TOTAL PROTEIN 6.6 GM/DL (6.4-8.2)
[2020-11-14 08:30] VITALS: BP 106/73
[2020-11-14] MEDS: OMEPRAZOLE 20 MG CAP PO SCH (08:38)
[2020-11-14] MEDS: HumaLOG INSULIN (NovoLOG) PER UNIT SC SCH ×2 (08:38→12:55)
[2020-11-14] MEDS: BENZONATATE 100 MG CAP PO SCH (08:38)
[2020-11-14] MEDS: ATORVASTATIN 20 MG TAB PO SCH (08:39)
[2020-11-14] MEDS: ENOXAPARIN 40MG/0.4ML SYRINGE (J1650 PER 10MG) SC SCH (08:39)
[2020-11-14] MEDS ORDERED: CEFD1CAP8 PO (12:13)
[2020-11-14] MEDS ORDERED: PROAAER10 INH (12:13)
[2020-11-14] MEDS ORDERED: PRED10TA2 PO (12:13)
[2020-11-14] MEDS ORDERED: DOXY100C PO (12:13)
[2020-11-14] MEDS ORDERED: AZIT500T5 PO (15:50)
[2020-11-14] MEDS: ACETAMINOPHEN TAB 650MG DOSE (2X325MG) PO PRN (15:52)
--- NOTE | 2020-11-14 15:52 | DS.PDOC ---
Discharge Summary General Date of Admission Nov 11, 2020 at 21:52 Date of Discharge November 14, 2020 Primary Care Physician: JUAN LA MD [facility] Attending Physician: MAXINE WILLETT MD Discharge Summary PROCEDURES PERFORMED DURING STAY: [None]. ADMITTING DIAGNOSES: 1. Acute hypoxic respiratory failure 2/2 COVID19 PNA DISCHARGE DIAGNOSES: 1. Acute hypoxic respiratory failure 2/2 COVID19 PNA COMPLICATIONS/CHIEF COMPLAINT: Shortness of breath HISTORY OF PRESENT ILLNESS: 60-year-old female history of hypertension diabetes and hyperlipidemia with known Covid 19 infection since November 04 (onset of symptoms October) presents to the hospital with progressive shortness of breath found to have a left lower lobe pneumonia and oxygen saturation in the 80s requiring supplemental oxygen. Patient tells me that over the past few days she's been having progressively increased cough resulting in chest pain associated with coughing as well as a fever at home but no sputum production this has progressed and she become increasingly weaker prompting her to present to the hospital. She tells me she's feeling better with the supplemental oxygen and shortness of breath has improved but she still feels weak. She denies current chest pain. HOSPITAL COURSE: Mrs. Agarwal was admitted on 11/11/2020 as she required 23 liters oxygen to maintain her saturations. She was started on ceftriaxone/azithromycin for community-acquired pneumonia coverage, and dexamet hasone. Both of which she received for 4 days each. A chest x-ray on admission was significant for infiltrate in the left lung base. The patient's vitals remained stable throughout hospitalization and her oxygen requirement was titrated down to 2 L. She was discharged home on a prednisone taper as well as 3 additional days of Cefdinir and azithromycin. She was also given home oxygen. DISCHARGE MEDICATIONS: Please see below. ALLERGIES: Please see below. PHYSICAL EXAMINATION ON DISCHARGE: VITAL SIGNS: see below GENERAL: alert and oriented, in no apparent distress, pleasant and conversant in full sentences. HEENT: PERRL, EOMI, Oral mucous membranes are moist without lesions. NECK: The patient has no noted JVD. No adenopathy is appreciated. No thyromegaly CHEST/LUNGS: Lungs are clear bilaterally without rhonchi, rales, or wheezes. There is no subcutaneous air appreciated. There is no tenderness to the chest wall. HEART:Regular rate and rhythm. No murmurs, rubs, or gallops are appreciated. Distal pulses are 2+. No carotid bruits appreciated. ABDOMEN: Soft, nontender, and nondistended. Bowel sounds are positive. No organomegaly is appreciated. No masses are appreciated. There are no peritoneal signs. There is no Sherburn sign. EXTREMITIES: No peripheral edema. There is no focal long bone tenderness or deformity. SKIN: The patients skin is warm and dry, without rashes or lesions. PSYCHIATRIC: AAO x 3, normal mood/affect NEUROLOGIC: The patient has 5/5 strength to the upper and lower extremities bilaterally. Sensation is intact throughout. Deep tendon reflexes are 2+ in all four extremities. There are no deficits to the cranial nerves. LABORATORY DATA: Please see below. IMAGING: CXR: FINDINGS: There is infiltrate in the left lung base. The right lung appears clear. The heart does not appear to be significantly enlarged. There is a moderate-sized hiatal hernia. There is curvature of the thoracic spine again noted. IMPRESSION: Infiltrate left lung base. PROGNOSIS: Fair ACTIVITY: [As tolerated]. DIET: Consistent carbohydrate DISCHARGE PLAN: Home DISPOSITION: . DISCHARGE INSTRUCTIONS: 1. Continue antibiotics (azithromycin, cefdinir) for 3 additional days 2. Complete prednisone taper 3. Return to the ED should symptoms worsen ITEMS TO FOLLOWUP ON ON OUTPATIENT: 1. None DISCHARGE CONDITION: [Stable]. TIME SPENT ON DISCHARGE: Greater than 40 minutes. Vital Signs/I&Os Vital Signs Date Time Temp Pulse Resp B/P (MAP) Pulse Ox O2 Delivery O2 Flow Rate FiO2 11/14/20 08:30 97.1 86 17 106/73 (84) 92 Nasal Cannula 3.0 I&O- Last 24 Hours up to 6 AM 11/14/20 05:59 Intake Total 905 ml Output Total 1250 ml Balance -345 ml Laboratory Data Labs 24H Laboratory Tests 2 11/13/20 15:27: Bedside Glucose (Misc Panel) 178H 11/13/20 22:35: Bedside Glucose (Misc Panel) 201H 11/14/20 06:06: Nucleated Red Blood Cells % (auto) 0.0, Fibrinogen 723H, D-Dimer, Quantitative 420.25, Anion Gap 10, Glomerular Filtration Rate > 60.0, Calcium Level 8.9, Magnesium Level 2.1, Ferritin 1030H, Total Bilirubin 0.6, Aspartate Amino Transf (AST/SGOT) 31, Alanine Aminotransferase (ALT/SGPT) 56, Alkaline Phosphatase 100, Lactate Dehydrogenase 248H, C-Reactive Protein, Quantitative 2.34H, Total Protein 6.6, Albumin 2.8L, Albumin/Globulin Ratio 0.7L CBC/BMP Laboratory Tests 11/14/20 06:06 FSBS Laboratory Tests Test 11/13/20 15:27 11/13/20 22:35 Range/Units Bedside Glucose (Misc Panel) 178 201 70-105 MG/DL Microbiology Microbiology 11/12/20 Blood Culture - Preliminary, Resulted No Growth after 48 hours. All Specime... 11/12/20 Blood Culture - Preliminary, Resulted No Growth after 48 hours. All Specime... Discharge Medications Scheduled Atorvastatin Calcium (Atorvastatin Calcium) 20 Mg Tab, 20 MG PO DAILY, (Reported) Azithromycin (Azithromycin) 500 Mg Tablet, 1 TAB PO DAILY Cefdinir (Cefdinir) 300 Mg Capsule, 1 CAP PO BID Losartan/Hydrochlorothiazide (Losartan-Hctz 50-12.5 mg Tab) 1 Each Tablet, 1 TAB PO DAILY, (Reported) Metformin HCl (Metformin HCl ER) 750 Mg Tab.er.24h, 750 MG PO QPM, (Reported) Omeprazole (Omeprazole) 20 Mg Cap, 20 MG PO BID, (Reported) Prednisone (Prednisone) 10 Mg Tablet, 10 MG PO TAPER Take 4 tabs daily x 3 days, then 3 tabs daily x 3 days, then 2 tabs daily x 3 days, then 1 tab daily x 3 days and stop Scheduled PRN Albuterol Sulfate (Proair Hfa) 8.5 Gm Hfa.aer.ad, 2 PUFF INH Q4-6HP PRN for wh eezing Allergies Coded Allergies: No Known Allergies (Unverified , 04/02/18) GME ATTESTATION GME ATTESTATION My faculty preceptor for this patient encounter was physically present during the encounter and was fully available. All aspects of the patient interview, examination, medical decision making process, and medical care plan development were reviewed and approved by the faculty preceptor. The faculty preceptor is aware and concurs with the plan as stated in the body of this note and will attest to such by his/her cosignature. ATTENDING NOTE I, Maxine Willett, have independently examined this patient and performed my own physical exam, as well as reviewed the documentation and edited where necessary. I have discussed in detail with the resident / student the findings and plan of treatment as documented by the resident / student and edited their note. I agree with their findings and treatment plan and have edited their documentation. I will continue to follow the patient during this hospital stay. Time spent on discharge 35 minutes CONNOR VARELA MD Nov 14, 2020 12:16 MAXINE WILLETT MD Nov 14, 2020 16:19
[2020-11-14 16:00] VITALS: BP 128/97
== END 2020-11-14 16:20 | disposition home health service (06) | DRG 137 ==
LOC: M ED 17:01 → M ED INP 21:52 → M 4MAIN 11-12 00:31
PROVIDERS: ADMIT Family Medicine; ATTEND Internal Medicine
PROC: 3E0333Z Introduction of Anti-inflammatory into Peripheral Vein, Percutaneous Approach (ICD-10-PCS; principal; 2020-11-11)
DX: U07.1 COVID-19 (principal); J96.01 Acute respiratory failure with hypoxia; J12.89 Other viral pneumonia; E11.9 Type 2 diabetes mellitus without complications; I10 Essential (primary) hypertension; E78.5 Hyperlipidemia, unspecified; E87.6 Hypokalemia; Z90.49 Acquired absence of other specified parts of digestive tract; Z79.84 Long term (current) use of oral hypoglycemic drugs; Z79.899 Other long term (current) drug therapy

== ENCOUNTER → 2021-03-05 | Outpatient (REF) | payer BC, OTHER ==
[~2021-03-05] MED LIST changes: +AZIT500T5 PO; +CEFD1CAP8 PO; +DOXY100C PO; +LOSA50TA5 PO; +METF750T36 PO; +PRED10TA2 PO; +PROAAER10 INH
[2021-03-05 18:00] LABS: HEMATOCRIT 46.6 % (36.0-47.0); HEMOGLOBIN 14.9 g/dl (12.0-15.5); MEAN CORPUSCULAR VOLUME 90.8 fl (80.0-96.0); PLATELET COUNT, AUTOMATED 301 10^3/uL (150-450); RED BLOOD COUNT 5.13 10^6/uL (4.00-5.40); WHITE BLOOD COUNT 9.2 10^3/uL (4.0-10.0)
[2021-03-05 18:27] LABS: ALBUMIN 4.1 GM/DL (3.2-5.2); ALT/SGPT 43 U/L (12-78); BILIRUBIN,TOTAL 1.2 MG/DL (0.2-1.0); BLOOD UREA NITROGEN 12 MG/DL (7-18); CALCIUM LEVEL 10.1 MG/DL (8.8-10.2); CARBON DIOXIDE LEVEL 32 MEQ/L (21-32); CHLORIDE LEVEL 104 MEQ/L (98-107); CREATININE FOR GFR 0.78 MG/DL (0.55-1.30); GLOMERULAR FILTRATION RATE > 60.0 (>45); GLUCOSE, FASTING 115 MG/DL (70-100); POTASSIUM SERUM 3.7 MEQ/L (3.5-5.1); SODIUM LEVEL 140 MEQ/L (136-145); TOTAL PROTEIN 7.3 GM/DL (6.4-8.2)
[2021-03-05 18:44] LABS: TOTAL 25(OH) VITAMIN D 53.2 NG/ML (30.0-100.0)
[2021-03-05 18:50] LABS: HEMOGLOBIN A1c 8.6 %
== END ==
LOC: M LABDRWAD 17:15
PROVIDERS: ATTEND Family Medicine
DX: E55.9 Vitamin D deficiency, unspecified (principal); E11.9 Type 2 diabetes mellitus without complications

== ENCOUNTER → 2022-03-21 | Outpatient (CLI) | payer BC ==
[~2022-03-21] MED LIST changes: -CEFD1CAP8 PO; +CEFD300C41 PO; -DOXY100C PO; +DOXY100C3 PO
[2022-03-21 13:04] LABS: HEMATOCRIT 43.6 % (36.0-47.0); HEMOGLOBIN 14.4 g/dl (12.0-15.5); MEAN CORPUSCULAR HEMOGLOBIN 29.8 pg (27.0-33.0); MEAN CORPUSCULAR VOLUME 90.3 fl (80.0-96.0); PLATELET COUNT, AUTOMATED 340 10^3/uL (150-450); RED BLOOD COUNT 4.83 10^6/uL (4.00-5.40)
[2022-03-21 13:37] LABS: ALBUMIN 3.6 GM/DL (3.2-5.2); ALT/SGPT 31 U/L (12-78); BILIRUBIN,TOTAL 0.8 MG/DL (0.2-1.0); BLOOD UREA NITROGEN 22 MG/DL (7-18); CARBON DIOXIDE LEVEL 32 MEQ/L (21-32); CHLORIDE LEVEL 104 MEQ/L (98-107); CHOLESTEROL LEVEL 174 MG/DL (<200); CREATININE FOR GFR 0.79 MG/DL (0.55-1.30); GLOMERULAR FILTRATION RATE > 60.0 (>45); GLUCOSE, FASTING 145 MG/DL (70-100); HDL CHOLESTEROL 58 MG/DL (>40); LDL CHOLESTEROL 81 MG/DL (<100); NON-HDL-C 116 MG/DL; POTASSIUM SERUM 4.2 MEQ/L (3.5-5.1); SODIUM LEVEL 142 MEQ/L (136-145); TOTAL PROTEIN 6.6 GM/DL (6.4-8.2); TRIGLYCERIDES LEVEL 174 MG/DL (<150)
[2022-03-21 13:43] LABS: TOTAL 25(OH) VITAMIN D 66.2 NG/ML (30.0-100.0)
[2022-03-21 13:54] LABS: HEMOGLOBIN A1c 7.2 %
[2022-03-21 14:05] LABS: MALB URINE SIEMENS 10.9 MG/L; MAU/CREAT RATIO 5.1 MCG/MG (0.0-30.0)
== END ==
LOC: M ADAMS 08:18
PROVIDERS: ATTEND Family Medicine
DX: E55.9 Vitamin D deficiency, unspecified (principal); I10 Essential (primary) hypertension; E11.9 Type 2 diabetes mellitus without complications

== ENCOUNTER → 2022-05-27 | Outpatient (CLI) | payer BC ==
[2022-05-27 17:08] LABS: BASO % 0.5 % (0.0-1.0); EOS # 0.2 10^3/uL (0.0-0.5); EOS % 2.7 % (0.0-3.0); HEMATOCRIT 46.5 % (36.0-47.0); HEMOGLOBIN 14.9 g/dl (12.0-15.5); LYMPH # 3.1 10^3/uL (1.5-5.0); LYMPH % 36.1 % (24.0-44.0); MEAN CORPUSCULAR HEMOGLOBIN 29.6 pg (27.0-33.0); MEAN CORPUSCULAR VOLUME 92.4 fl (80.0-96.0); MONO # 0.7 10^3/uL (0.0-0.8); NEUTROPHILS # 4.5 10^3/uL (1.5-8.5); NEUTROPHILS % 52.4 % (36.0-66.0); PLATELET COUNT, AUTOMATED 331 10^3/uL (150-450); RED BLOOD COUNT 5.03 10^6/uL (4.00-5.40); WHITE BLOOD COUNT 8.7 10^3/uL (4.0-10.0)
[2022-05-27 17:34] LABS: BILIRUBIN,TOTAL 1.3 MG/DL (0.2-1.0); CALCIUM LEVEL 10.3 MG/DL (8.8-10.2); CREATININE FOR GFR 1.06 MG/DL (0.55-1.30); GLOMERULAR FILTRATION RATE 56.1 (>45); TOTAL PROTEIN 7.3 GM/DL (6.4-8.2)
[2022-05-27 17:56] LABS: HEMOGLOBIN A1c 6.8 %
== END ==
LOC: M ADAMS 10:31
PROVIDERS: ATTEND Family Medicine
DX: Z01.818 Encounter for other preprocedural examination (principal); E11.9 Type 2 diabetes mellitus without complications

== ENCOUNTER → 2022-06-14 | Outpatient (CLI) | payer BC ==
[2022-06-14 13:50] LABS: BLOOD UREA NITROGEN 20 MG/DL (7-18); CALCIUM LEVEL 9.9 MG/DL (8.8-10.2); CARBON DIOXIDE LEVEL 29 MEQ/L (21-32); CHLORIDE LEVEL 101 MEQ/L (98-107); CREATININE FOR GFR 0.95 MG/DL (0.55-1.30); GLOMERULAR FILTRATION RATE > 60.0 (>45); GLUCOSE, FASTING 170 MG/DL (70-100); POTASSIUM SERUM 3.7 MEQ/L (3.5-5.1); SODIUM LEVEL 135 MEQ/L (136-145)
== END ==
LOC: M ADAMS 09:56
PROVIDERS: ATTEND Family Medicine
DX: E87.6 Hypokalemia (principal)

== ENCOUNTER → 2022-08-10 | Outpatient (CLI) | payer BC ==
[2022-08-10 14:32] LABS: HEMATOCRIT 47.4 % (36.0-47.0); HEMOGLOBIN 15.4 g/dl (12.0-15.5); MEAN CORPUSCULAR HEMOGLOBIN 29.7 pg (27.0-33.0); MEAN CORPUSCULAR HGB CONC 32.5 g/dl (32.0-36.5); MEAN CORPUSCULAR VOLUME 91.5 fl (80.0-96.0); PLATELET COUNT, AUTOMATED 340 10^3/uL (150-450); RED BLOOD COUNT 5.18 10^6/uL (4.00-5.40); WHITE BLOOD COUNT 17.5 10^3/uL (4.0-10.0)
[2022-08-10 15:07] LABS: ALBUMIN 3.6 GM/DL (3.2-5.2); ALT/SGPT 22 U/L (12-78); BILIRUBIN,TOTAL 1.2 MG/DL (0.2-1.0); BLOOD UREA NITROGEN 14 MG/DL (7-18); CARBON DIOXIDE LEVEL 32 MEQ/L (21-32); CHLORIDE LEVEL 100 MEQ/L (98-107); CHOLESTEROL LEVEL 178 MG/DL (<200); CHOLESTEROL RISK RATIO 3.122 (<5); CREATININE FOR GFR 0.88 MG/DL (0.55-1.30); GLOMERULAR FILTRATION RATE > 60.0 (>45); GLUCOSE, FASTING 157 MG/DL (70-100); HDL CHOLESTEROL 57 MG/DL (>40); LDL CHOLESTEROL 97 MG/DL (<100); NON-HDL-C 121 MG/DL; POTASSIUM SERUM 3.5 MEQ/L (3.5-5.1); SODIUM LEVEL 137 MEQ/L (136-145); TOTAL PROTEIN 6.9 GM/DL (6.4-8.2); TRIGLYCERIDES LEVEL 119 MG/DL (<150)
[2022-08-10 15:27] LABS: MALB URINE SIEMENS 9.9 MG/L; MAU/CREAT RATIO 5.7 MCG/MG (0.0-30.0)
[2022-08-10 15:31] LABS: HEMOGLOBIN A1c 7.6 %
[2022-08-10 15:32] LABS: TOTAL 25(OH) VITAMIN D 70.2 NG/ML (30.0-100.0)
== END ==
LOC: M LABDRWAD 09:50
PROVIDERS: ATTEND Family Medicine
DX: E55.9 Vitamin D deficiency, unspecified (principal); I10 Essential (primary) hypertension; E11.9 Type 2 diabetes mellitus without complications

== ENCOUNTER → 2022-08-22 | Outpatient (CLI) | payer BC ==
[2022-08-22 18:56] LABS: APPEARANCE, URINE MANUAL CLEAR (CLEAR); COLOR, URINE MANUAL YELLOW (YELLOW)
[2022-08-22 18:58] LABS: BILIRUBIN, URINE MANUAL NEGATIVE (NEGATIVE); BLOOD URINE MANUAL NEGATIVE (NEGATIVE); GLUCOSE, URINE (UA) MANUAL 4+(1000 MG/DL) mg/dL (NEGATIVE); KETONE, URINE MANUAL NEGATIVE (NEGATIVE); NITRITE, URINE MANUAL NEGATIVE (NEGATIVE); PROTEIN, URINE MANUAL NEGATIVE (NEGATIVE); UROBILINOGEN, URINE MANUAL NORMAL (NORMAL)
[2022-08-22 20:44] LABS: LEUKOCYTE ESTERASE, URINE MAN TRACE (NEGATIVE); RBC, URINE NONE SEEN /hpf (0-3); SQUAMOUS EPITHELIAL CELL URINE SMALL AMOUNT /hpf (SMALL AMT)
[2022-08-22 20:45] LABS: BACTERIA, URINE SMALL AMOUNT; HYALINE CAST, URINE NONE SEEN /lpf (0-1)
== END ==
LOC: M LABDRWAD 15:34
PROVIDERS: ATTEND Family Medicine
DX: N39.0 Urinary tract infection, site not specified (principal)

== ENCOUNTER → 2022-08-24 | Outpatient (CLI) | payer BC ==
[2022-08-24 13:26] LABS: BASO # 0.1 10^3/uL (0.0-0.2); BASO % 0.4 % (0.0-1.0); EOS # 0.3 10^3/uL (0.0-0.5); EOS % 2.6 % (0.0-3.0); HEMATOCRIT 45.2 % (36.0-47.0); HEMOGLOBIN 14.1 g/dl (12.0-15.5); LYMPH # 3.7 10^3/uL (1.5-5.0); LYMPH % 30.8 % (24.0-44.0); MEAN CORPUSCULAR HEMOGLOBIN 28.5 pg (27.0-33.0); MEAN CORPUSCULAR HGB CONC 31.2 g/dl (32.0-36.5); MEAN CORPUSCULAR VOLUME 91.3 fl (80.0-96.0); MONO % 8.1 % (2.0-8.0); NEUTROPHILS # 6.9 10^3/uL (1.5-8.5); NEUTROPHILS % 57.5 % (36.0-66.0); PLATELET COUNT, AUTOMATED 418 10^3/uL (150-450); RED BLOOD COUNT 4.95 10^6/uL (4.00-5.40); WHITE BLOOD COUNT 11.9 10^3/uL (4.0-10.0)
[2022-08-24 16:21] LABS: ALBUMIN 3.4 GM/DL (3.2-5.2); ALT/SGPT 26 U/L (12-78); BILIRUBIN,TOTAL 0.6 MG/DL (0.2-1.0); BLOOD UREA NITROGEN 15 MG/DL (7-18); CALCIUM LEVEL 9.5 MG/DL (8.8-10.2); CARBON DIOXIDE LEVEL 29 MEQ/L (21-32); CHLORIDE LEVEL 102 MEQ/L (98-107); CREATININE FOR GFR 0.83 MG/DL (0.55-1.30); GLOMERULAR FILTRATION RATE > 60.0 (>45); GLUCOSE, FASTING 150 MG/DL (70-100); POTASSIUM SERUM 3.3 MEQ/L (3.5-5.1); SODIUM LEVEL 140 MEQ/L (136-145); TOTAL PROTEIN 6.5 GM/DL (6.4-8.2)
== END ==
LOC: M LABDRWAD 08:29
PROVIDERS: ATTEND Family Medicine
DX: N39.0 Urinary tract infection, site not specified (principal)

== ENCOUNTER → 2023-02-14 | Outpatient (CLI) | payer BC, OTHER ==
[2023-02-14 13:49] LABS: ALBUMIN 3.9 G/DL (3.2-5.2); ALKALINE PHOSPHATASE 82 U/L (46-116); ALT/SGPT 18 U/L (7.0-40); AST/SGOT 14 U/L (<34); BILIRUBIN,TOTAL 1.2 MG/DL (0.3-1.2); BLOOD UREA NITROGEN 20 MG/DL (9-23); CALCIUM LEVEL 9.4 MG/DL (8.3-10.6); CARBON DIOXIDE LEVEL 30 MMOL/L (20-31); CHLORIDE LEVEL 104 MMOL/L (98-107); CREATININE FOR GFR 0.81 MG/DL (0.55-1.30); GLOMERULAR FILTRATION RATE > 60.0 (>45); GLUCOSE, FASTING 135 MG/DL (74-106); POTASSIUM SERUM 3.7 MMOL/L (3.5-5.1); SODIUM LEVEL 141 MMOL/L (136-145); TOTAL PROTEIN 6.8 G/DL (5.7-8.2)
[2023-02-14 13:50] LABS: BASO % 0.5 % (0.0-1.0); EOS # 0.3 10^3/uL (0.0-0.5); EOS % 3.8 % (0.0-3.0); HEMATOCRIT 46.4 % (36.0-47.0); LYMPH # 3.2 10^3/uL (1.5-5.0); LYMPH % 39.2 % (24.0-44.0); MEAN CORPUSCULAR HEMOGLOBIN 29.5 pg (27.0-33.0); MEAN CORPUSCULAR HGB CONC 32.3 g/dl (32.0-36.5); MEAN CORPUSCULAR VOLUME 91.3 fl (80.0-96.0); MONO # 0.7 10^3/uL (0.0-0.8); MONO % 8.5 % (2.0-8.0); NEUTROPHILS # 3.9 10^3/uL (1.5-8.5); NEUTROPHILS % 47.8 % (36.0-66.0); PLATELET COUNT, AUTOMATED 304 10^3/uL (150-450); RED BLOOD COUNT 5.08 10^6/uL (4.00-5.40); WHITE BLOOD COUNT 8.1 10^3/uL (4.0-10.0)
[2023-02-14 15:38] LABS: HEMOGLOBIN A1c 6.9 % (4.0-6.0)
== END ==
LOC: M LABDRWAD 08:25
PROVIDERS: ATTEND Family Medicine
DX: E11.9 Type 2 diabetes mellitus without complications (principal)

== ENCOUNTER → 2023-02-17 | Outpatient (CLI) | payer BC, OTHER | LOC: M WHC 09:04 | PROVIDERS: ATTEND Family Medicine | DX: Z12.31 Encounter for screening mammogram for malignant neoplasm of breast (principal) ==

== ENCOUNTER → 2023-08-07 | Outpatient (CLI) | payer BC, OTHER ==
[2023-08-07 11:49] LABS: BASO # 0.1 10^3/uL (0.0-0.2); BASO % 0.6 % (0.0-1.0); EOS # 0.3 10^3/uL (0.0-0.5); EOS % 3.3 % (0.0-3.0); HEMATOCRIT 46.3 % (36.0-47.0); HEMOGLOBIN 15.2 g/dl (12.0-15.5); LYMPH # 3.2 10^3/uL (1.5-5.0); LYMPH % 36.6 % (24.0-44.0); MEAN CORPUSCULAR HEMOGLOBIN 29.7 pg (27.0-33.0); MEAN CORPUSCULAR HGB CONC 32.8 g/dl (32.0-36.5); MEAN CORPUSCULAR VOLUME 90.4 fl (80.0-96.0); MONO # 0.9 10^3/uL (0.0-0.8); NEUTROPHILS # 4.3 10^3/uL (1.5-8.5); NEUTROPHILS % 49.3 % (36.0-66.0); PLATELET COUNT, AUTOMATED 298 10^3/uL (150-450); RED BLOOD COUNT 5.12 10^6/uL (4.00-5.40); WHITE BLOOD COUNT 8.7 10^3/uL (4.0-10.0)
[2023-08-07 11:54] LABS: HEMOGLOBIN A1c 6.4 % (4.0-6.0)
[2023-08-07 12:20] LABS: TOTAL 25(OH) VITAMIN D 70.1 NG/ML (20.0-100.0)
[2023-08-07 12:21] LABS: ALBUMIN 3.9 G/DL (3.2-5.2); ALKALINE PHOSPHATASE 91 U/L (46-116); ALT/SGPT 24 U/L (7.0-40); AST/SGOT 16 U/L (<34); BILIRUBIN,TOTAL 1.4 MG/DL (0.3-1.2); BLOOD UREA NITROGEN 15 MG/DL (9-23); CALCIUM LEVEL 10.2 MG/DL (8.3-10.6); CARBON DIOXIDE LEVEL 31 MMOL/L (20-31); CHLORIDE LEVEL 104 MMOL/L (98-107); CHOLESTEROL LEVEL 169 MG/DL (<200); CHOLESTEROL RISK RATIO 2.83 (<5); CREATININE FOR GFR 0.77 MG/DL (0.55-1.30); GLOMERULAR FILTRATION RATE > 60.0 (>45); GLUCOSE, FASTING 126 MG/DL (74-106); HDL CHOLESTEROL 59.7 MG/DL (>40); LDL CHOLESTEROL 85.5 MG/DL (<100); NON-HDL-C 109.3 MG/DL; POTASSIUM SERUM 3.6 MMOL/L (3.5-5.1); SODIUM LEVEL 142 MMOL/L (136-145); TOTAL PROTEIN 6.8 G/DL (5.7-8.2); TRIGLYCERIDES LEVEL 119 MG/DL (<150)
== END ==
LOC: M WUC 09:11
PROVIDERS: ATTEND Family Medicine
DX: E55.9 Vitamin D deficiency, unspecified (principal); E11.9 Type 2 diabetes mellitus without complications

== ENCOUNTER → 2023-08-14 | Outpatient (CLI) | payer BC, OTHER ==
[~2023-08-14] MED LIST changes: -CEFD300C41 PO; +CEFD300C42 PO
== END ==
LOC: M WHC 09:55
PROVIDERS: ATTEND Physician Assistant Medical
DX: N95.0 Postmenopausal bleeding (principal)

== ENCOUNTER → 2024-03-04 | Outpatient (CLI) | payer BC, OTHER ==
[~2024-03-04] MED LIST changes: +CEFD1CAP9 PO; -CEFD300C42 PO
[2024-03-04 14:29] LABS: BASO # 0.1 10^3/uL (0.0-0.2); BASO % 0.7 % (0.0-1.0); EOS # 0.3 10^3/uL (0.0-0.5); EOS % 2.8 % (0.0-3.0); HEMATOCRIT 46.4 % (36.0-47.0); HEMOGLOBIN 15.1 g/dl (12.0-15.5); LYMPH # 3.7 10^3/uL (1.5-5.0); LYMPH % 40.1 % (24.0-44.0); MEAN CORPUSCULAR HEMOGLOBIN 29.6 pg (27.0-33.0); MEAN CORPUSCULAR HGB CONC 32.5 g/dl (32.0-36.5); MONO # 0.8 10^3/uL (0.0-0.8); MONO % 8.4 % (2.0-8.0); NEUTROPHILS # 4.4 10^3/uL (1.5-8.5); NEUTROPHILS % 47.8 % (36.0-66.0); PLATELET COUNT, AUTOMATED 300 10^3/uL (150-450); WHITE BLOOD COUNT 9.1 10^3/uL (4.0-10.0)
[2024-03-04 14:38] LABS: HEMOGLOBIN A1c 6.7 % (4.0-6.0)
[2024-03-04 15:02] LABS: CREATININE, URINE 38.8 MG/DL; MALB URINE SIEMENS < 3.0 MG/L; MAU/CREAT RATIO 7.7 MCG/MG (0.0-30.0); TOTAL 25(OH) VITAMIN D 51.9 NG/ML (20.0-100.0)
[2024-03-04 15:04] LABS: ALBUMIN 3.4 G/DL (3.2-5.2); ALKALINE PHOSPHATASE 93 U/L (46-116); ALT/SGPT 21 U/L (7.0-40); AST/SGOT 14 U/L (<34); BILIRUBIN,TOTAL 1.5 MG/DL (0.3-1.2); BLOOD UREA NITROGEN 14 MG/DL (9-23); CALCIUM LEVEL 9.6 MG/DL (8.3-10.6); CARBON DIOXIDE LEVEL 31 MMOL/L (20-31); CHLORIDE LEVEL 102 MMOL/L (98-107); CHOLESTEROL LEVEL 166 MG/DL (<200); CHOLESTEROL RISK RATIO 2.98 (<5); CREATININE FOR GFR 0.75 MG/DL (0.55-1.30); GLOMERULAR FILTRATION RATE > 60.0 (>45); GLUCOSE, FASTING 132 MG/DL (74-106); HDL CHOLESTEROL 55.6 MG/DL (>40); LDL CHOLESTEROL 82.6 MG/DL (<100); NON-HDL-C 110.4 MG/DL; POTASSIUM SERUM 3.5 MMOL/L (3.5-5.1); SODIUM LEVEL 141 MMOL/L (136-145); TOTAL PROTEIN 6.4 G/DL (5.7-8.2); TRIGLYCERIDES LEVEL 139 MG/DL (<150)
== END ==
LOC: M WUC 09:00
PROVIDERS: ATTEND Family Medicine
DX: E55.9 Vitamin D deficiency, unspecified (principal); E11.9 Type 2 diabetes mellitus without complications

== ENCOUNTER → 2025-03-10 | Outpatient (CLI) | payer BC, OTHER ==
[2025-03-10 12:36] LABS: BASO % 0.4 % (0.0-1.0); EOS # 0.2 10^3/uL (0.0-0.5); EOS % 2.1 % (0.0-3.0); HEMOGLOBIN 15.7 g/dl (12.0-15.5); LYMPH # 2.8 10^3/uL (1.5-5.0); LYMPH % 29.6 % (24.0-44.0); MEAN CORPUSCULAR HEMOGLOBIN 29.1 pg (27.0-33.0); MEAN CORPUSCULAR HGB CONC 32.7 g/dl (32.0-36.5); MEAN CORPUSCULAR VOLUME 88.9 fl (80.0-96.0); MONO # 0.9 10^3/uL (0.0-0.8); MONO % 9.5 % (2.0-8.0); NEUTROPHILS # 5.6 10^3/uL (1.5-8.5); NEUTROPHILS % 58.1 % (36.0-66.0); PLATELET COUNT, AUTOMATED 316 10^3/uL (150-450); WHITE BLOOD COUNT 9.6 10^3/uL (4.0-10.0)
[2025-03-10 13:08] LABS: BILIRUBIN,TOTAL 1.4 MG/DL (0.3-1.2); CALCIUM LEVEL 10.1 MG/DL (8.3-10.6); CHOLESTEROL RISK RATIO 3.12 (<5); CREATININE FOR GFR 0.82 MG/DL (0.55-1.30); GLOMERULAR FILTRATION RATE 79.8 (>45); HDL CHOLESTEROL 57.6 MG/DL (>40); LDL CHOLESTEROL 96.4 MG/DL (<100); NON-HDL-C 122.4 MG/DL; POTASSIUM SERUM 3.6 MMOL/L (3.5-5.1); TOTAL PROTEIN 7.1 G/DL (5.7-8.2)
[2025-03-10 13:10] LABS: CREATININE, URINE 79.8 MG/DL; MALB URINE SIEMENS < 3.0 MG/L
[2025-03-10 13:12] LABS: TOTAL 25(OH) VITAMIN D 56.5 NG/ML (20.0-100.0)
== END ==
LOC: M WUC 09:04
PROVIDERS: ATTEND Family Medicine
DX: E55.9 Vitamin D deficiency, unspecified (principal); E11.9 Type 2 diabetes mellitus without complications